=== PATIENT | female | born 1980 | race Caucasian/White ===

== ENCOUNTER 2022-03-14 15:26 | Inpatient (IN) | payer BC, SELFPAY ==
[2022-03-14] VITALS (18 sets, daily range): BP systolic 119–128; BP diastolic 77–94; PULSE 62–75; RESP 16–18; TEMP 36.3–36.6; O2SAT 99–100; BMI 22.8
--- NOTE | 2022-03-14 15:52 | ED_ITS ---
HPI - General Adult General Time Seen by Provider: 15:52 Date Seen: 03/14/22 Chief complaint: Post Op Complication Stated complaint: Low calcium, tingling/cramps Time Seen by Provider: 03/14/22 15:47 Source: patient and RN notes reviewed Mode of arrival: ambulatory Limitations: no limitations History of Present Illness HPI narrative: Patient is a 41-year-old female coming in with numbness tingling and an episode of spasm of her hands today after total thyroidectomy. Today is Wednesday, patient had a complete thyroidectomy at [facility] on Wednesday of this week. 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 She has been taking calcium, has taken 3000 mg of oral calcium already today. She is still has facial and upper extremity numbness tingling feeling. She took a nap earlier today and woke up, was just walking around in her fingers in both hands spasmed straight and she could not move them. She has felt no palpitations or heart irregularity. Related Data Home Medications Medication Instructions Recorded Confirmed calcium 500 mg tablet 2,000 mg PO DAILY 03/14/22 03/14/22 ergocalciferol (vitamin D2) 1,000 2,000 unit PO DAILY 03/14/22 03/14/22 unit capsule levothyroxine 100 mcg tablet 100 mcg PO DAILY 03/14/22 03/14/22 sertraline 50 mg tablet 50 mg PO DAILY 03/14/22 03/14/22 spironolactone 50 mg tablet 50 mg PO DAILY 03/14/22 03/14/22 tramadol 50 mg tablet mg 03/14/22 Allergies Allergy/AdvReac Type Severity Reaction Status Date / Time No Known Drug Allergies Allergy Verified 03/14/22 15:49 Review of Systems Status of ROS: Reports: 10 or more systems reviewed and unremarkable except as noted in History and below [facility] Surgical History (Updated 03/14/22 @ 18:01 by Marylin Vanegas MD) History of thyroidectomy, total S/P ACL surgery Exam Const: Vital Signs, click to edit/add: Vital Signs - 24 hr 03/14/22 15:47 03/14/22 16:35 03/14/22 16:36 Temperature 97.8 F Pulse Rate 75 73 Pulse Rate [Right Pulse Oximeter] 67 Respiratory Rate 18 Blood Pressure 128/86 Blood Pressure [Ri ght Upper Arm] 123/77 Pulse Oximetry 100 100 100 Oxygen Delivery Me thod Room Air 03/14/22 17:00 03/14/22 17:01 03/14/22 17:02 Temperature Pulse Rate 68 69 67 Pulse Rate [Right Pulse Oximeter] Respiratory Rate Blood Pressure 122/90 H Blood Pressure [Ri ght Upper Arm] Pulse Oximetry 100 100 100 Oxygen Delivery Me thod 03/14/22 17:30 03/14/22 17:31 Temperature Pulse Rate 73 66 Pulse Rate [Right Pulse Oximeter] Respiratory Rate Blood Pressure 126/94 H Blood Pressure [Ri ght Upper Arm] Pulse Oximetry 100 100 Oxygen Delivery Me thod Documenting provider has reviewed patient's vital signs: yes Common normals: no apparent distress, average body habitus, oriented x3, no limitations, healthy appearing, alert and well nourished General appearance: cooperative, comfortable, well kempt and anxious (Very mildly ) HENMT: Common normals: normocephalic, head/scalp atraumatic, hearing grossly normal bilaterally, external nose normal, nasal mucous membranes and turbinates normal, moist oral mucous membranes, oropharynx normal, dentition normal and gingiva normal Head and scalp: normocephalic and atraumatic Nose: external nose normal and nasal mucous membranes and turbinates normal Other: Patient has Chvostek sign. Eye: Common normals: PERRL, EOMs intact bilaterally, conjunctivae normal and no scleral icterus Conjunctiva: conjunctiva(e) normal Pupil: PERRL Neck & C-Spine: Common normals: full ROM, no lymphadenopathy, supple, no meningeal signs and no JVD Other: Has Steri-Strips in small incision anteriorly over the neck that is clean dry and intact. There is a little underlying swelling. There is no erythema, no concern for any infection, no drainage. Resp: Common normals: normal respiratory effort, no retractions, no use of accessory muscles and clear to auscultation bilaterally Auscultation: clear to auscultation bilaterally Cardio: Common normals: no JVD, regular rate, regular rhythm, S1 normal heart sound, S2 normal heart sound, no gallops, no clicks, no murmurs and no rub Rate: regular rate Rhythm: regular rhythm Heart sounds: S1 normal and S2 normal GI: Common normals: Normal to inspection, nondistended, normoactive bowel sounds present, soft to palpation, non-tender, no hepatosplenomegaly and no masses Palpation: soft and no hepatosplenomegaly Extremity: Common normals: normal to inspection, full ROM, normal capillary refill, no joint enlargement, no clubbing, cyanosis or edema, no calf tenderness and no pedal edema Neuro: Common normals: oriented x3, CN's II-XII intact bilaterally, moves all extremities, no focal motor deficits, no sensory deficits noted and gait normal Sensorium/orientation: alert Meningeal signs: no meningeal signs Speech: speech normal Other: No noted spasms while I was with her, outside of Chvostek sign, note no s pasticity on exam at this time. DTR's are negative at biceps. Psych: Appearance: well kempt Course Course Hospital Course: We will obtain an EKG, place her on cardiac monitoring, obtain an IV and appropriate labs. With her labs we will make sure her magnesium level is therapeutic. We will check both calcium and ionized calcium. Reevaluation(s) Reevaluation #1: Reviewed with patient her ionized calcium is low, her EKG look stable. Waiting on the rest of her labs. Given her ionized calcium is quite low and she is exhibiting more severe symptoms of hypocalcemia, have ordered 1 g of calcium gluconate, our protocol puts this in over 30 minutes which should be safe. She is on cardiac monitoring. Have spoken with our hospitalist regarding this patient. Time: 16:54 Consultations Consultation #1: Did speak with Dr. Shabazz regarding this case. She did recommend that the patient needs vitamin-D to be able to absorb the calcium. Will ask the patient about this. We did discuss when IV you should be done. She is thinking that this patient may require IV. Depending on where her levels are and symptomatology, patient may need hospitalization. Time: 16:09 Consultation #2: Did speak with the hospitalist. She is aware of the magnesium, has already written IV magnesium orders. Thus we will transfer the patient to the floor and this will be replaced there. Time: 18:01 Vital Signs Vital signs: Initial Vital Signs Temperature 97.8 F 03/14/22 15:47 Temperature Source Temporal Artery Scan 03/14/22 15:47 Pulse Rate 67 03/14/22 15:47 Respiratory Rate 18 03/14/22 15:47 Blood Pressure 123/77 03/14/22 15:47 Blood Pressure Mean 92 03/14/22 15:47 Blood Pressure Position Sitting 03/14/22 15:47 Pulse Oximetry 100 03/14/22 15:47 Oxygen Delivery Method 03/14/22 15:47 Vital Signs Temperature 97.8 F 03/14/22 15:47 Pulse Rate 67 03/14/22 15:47 Respiratory Rate 18 03/14/22 15:47 Blood Pressure 123/77 03/14/22 15:47 Pulse Oximetry 100 03/14/22 15:47 Oxygen Delivery Method 03/14/22 15:47 Temperature 97.8 F 03/14/22 15:47 Pulse Rate 66 03/14/22 17:31 Respiratory Rate 18 03/14/22 15:47 Blood Pressure 126/94 H 03/14/22 17:31 Pulse Oximetry 100 03/14/22 17:31 Oxygen Delivery Method 03/14/22 15:47 Medical Decision Making Lab Data Lab results reviewed: Yes I reviewed the patient's lab results Labs: Lab Results 03/14/22 03/14/22 03/14/22 Range/Units 16:03 16:03 16:03 WBC 6.42 (4.50-11.00) K/uL RBC 4.50 (4.00-5.20) m/uL Hgb 12.6 (12.0-16.0) gm/dL Hct 38.2 (33.0-51.0) % MCV 85 (80-100) fL MCH 28 (26-34) pg MCHC 33 (32-36) gm/dL RDW Coeff of Chelsie 12.0 (11.5-15.5) % Plt Count 236 (140-440) K/uL Neut % (Auto) 65.9 (42.0-72.0) % Lymph % (Auto) 23.7 (20-44) % Berks % (Auto) 7.9 (0.0-11.0) % Eos % (Auto) 1.7 (0.0-7.0) % Baso % (Auto) 0.6 (0.0-3.0) % Neut # (Auto) 4.23 (1.7-7.0) K/uL Lymph # (Auto) 1.52 (0.90-2.90) K/uL Berks # (Auto) 0.50 (0.00-0.90) K/UL Eos # (Auto) 0.11 (0.00-0.50) K/uL Baso # (Auto) 0.04 (0.00-0.30) K/uL Abs Immat Gran (auto) 0.01 (0.00-0.30) K/uL Sodium 140 (135-149) mmol/L Potassium 3.3 L (3.6-5.1) mmol/L Chloride 103 (96-114) mmol/L Carbon Dioxide 27 (20-32) mmol/L BUN 9 (5-24) mg/dL Creatinine 0.7 (0.5-1.5) mg/dL Estimated Creat Clear 91.33 Estimated GFR 111 ml/min Glucose 98 (60-115) mg/dL Calcium 7.7 L (8.4-10.6) mg/dL Ionized Calcium Aishwarya (1.11-1.30) mmol/L Magnesium 1.4 L (1.5-2.6) mg/dL SARS-CoV-2 (PCR) Negative SARS-CoV-2 (Negative) 03/14/22 Range/Units 16:03 WBC (4.50-11.00) K/uL RBC (4.00-5.20) m/uL Hgb (12.0-16.0) gm/dL Hct (33.0-51.0) % MCV (80-100) fL MCH (26-34) pg MCHC (32-36) gm/dL RDW Coeff of Chelsie (11.5-15.5) % Plt Count (140-440) K/uL Neut % (Auto) (42.0-72.0) % Lymph % (Auto) (20-44) % Berks % (Auto) (0.0-11.0) % Eos % (Auto) (0.0-7.0) % Baso % (Auto) (0.0-3.0) % Neut # (Auto) (1.7-7.0) K/uL Lymph # (Auto) (0.90-2.90) K/uL Berks # (Auto) (0.00-0.90) K/UL Eos # (Auto) (0.00-0.50) K/uL Baso # (Auto) (0.00-0.30) K/uL Abs Immat Gran (auto) (0.00-0.30) K/uL Sodium (135-149) mmol/L Potassium (3.6-5.1) mmol/L Chloride (96-114) mmol/L Carbon Dioxide (20-32) mmol/L BUN (5-24) mg/dL Creatinine (0.5-1.5) mg/dL Estimated Creat Clear Estimated GFR ml/min Glucose (60-115) mg/dL Calcium (8.4-10.6) mg/dL Ionized Calcium Aishwarya 0.96 L (1.11-1.30) mmol/L Magnesium (1.5-2.6) mg/dL SARS-CoV-2 (PCR) (Negative) ECG Data Attestation: I personally reviewed and interpreted this ECG as follows: (Sinus rhythm, 69 beats per minute. QT corrected is 432 milliseconds.) Prior ECG tracings: not available for review Critical Care Time Critical Care Time Critical Care Time: No Discharge Plan Discharge Clinical Impression: Status post complete thyroidectomy, Hypomagnesemia, Hypocalcemia Patient Disposition: Admitted As Inpatient Condition: Stable Prescriptions: No Action tramadol 50 mg tablet Hold Instructions: not taking, post surgical med levothyroxine 100 mcg tablet 100 mcg PO DAILY sertraline 50 mg tablet 50 mg PO DAILY spironolactone 50 mg tablet 50 mg PO DAILY calcium 500 mg tablet 2,000 mg PO DAILY ergocalciferol (vitamin D2) 1,000 unit capsule 2,000 unit PO DAILY Follow Up/Referrals: Laura Corona DO [Primary Care Provider] -
--- OUTSIDE RECORDS SUMMARY | 2022-03-14 16:25 | XMS_ITS | Encounter Summary ---
:1980 Author Organization [place] Address [facility] [place] [address] Care Team Providers Name Role Phone Clinic, [facility] Primary Care Provider [phone] Reason for Visit Reason Comments Consult Multinodular goiter Encounter Details Date Type Department Care Team Description 01/29/2022 Office Visit [facility] Alexandru Fair-toxi c multinodular Surgery Clinic Sarai Champion MD goiter [address] [place] [phone] [place] [id number] Social History Tobacco Use Types Packs/Day Years Used Date Never Smoker Smokeless Tobacco: Never Used Alcohol Use Standard Drinks/Week Comments Yes 0 (1 standard drink = 0.6 oz pure alcoho l) 3 per week Alcohol Habits Answer Date Recorded How often do you have a drink containing alcohol? Not asked How many drinks containing alcohol do you have on a typical Not asked day when you are drinking? How often do you have six or more drinks on one occasion? No t asked Comment: 3 per week 01/29/2022 Sex Assigned at Date Recorded Not on file COVID-19 Exposure Response Date Recorded In the last 10 days, have you been in contact with No / Unsu re 01/29/2022 8:26 AM CDT someone who was confirmed or suspected to have Coronavirus/COVID-19? documented as of this encounter Last Filed Vital Signs Vital Sign Reading Time Taken Comments Blood Pressure 120/80 01/29/2022 8:41 AM CDT Pulse 76 01/29/2022 8:41 AM CDT Temperature - - Respiratory Rate - - Oxygen Saturation - - Inhaled Oxygen Concentration - - Weight 59 kg (130 lb) 01/29/2022 8:41 AM CDT Pt report ed Height 162.6 cm (5' 4) 01/29/2022 8:41 AM CDT Pt repor valdo Body Mass Index 22.31 01/29/2022 8:41 AM CDT documented in this encounter Progress Notes Alexandru Fair MD - 01/29/2022 8:30 AM CDT Surgery Consultation, [facility] Alexandru Fair MD, aMdhuri Padilla Date of : 1980 Age: [age] year old PCP: Jinny [facility] [phone] Chief Complaint: Multinodular goiter, follicular neoplasm [facility] History of Present Illness: Madhuri Padilla is a 41 year old female who presented with a multinodular goiter. This has been present for some time. She had undergone serial ultrasounds and most recently, one of her nodules was thought to be larger. Measured approximately 2.5 cm. This was biopsied and t hought to be suspicious for follicular neoplasm. Gene assay was then sent and a degree of suspicion of 50% was suggested. Patient does not have significant sensations of fullness or swallowing difficulties. Does not have a family history of thyroid cancer in an aunt. Patient is euthyroid, takes no thyroid supplementation. She is here to discuss her findings. PMH: Madhuri Padilla has no past medical history on file. PSH: Madhuri Padilla has a past surgical history that includes Arthroscopic Repair Acl (1998). Home medications and allergies reviewed. Social History: Madhuri Padilla reports that she has never smoked. She has never used smokeless tobacco. She reports current alcohol use. She reports that she does not use drugs. Family History: Madhuri Padilla family history includes Anesthesia Reaction in her mother; Cerebrovascular Disease in her maternal grandfather; Coronary Artery Disease in her maternal grandfather and paternal grandfather; Diabetes in her father, maternal grandfather, and paternal grandfather; Hyperlipidemia in her maternal grandfather; Hypertension in her brother, maternal grandfather, mother, and paternal grandfather. ROS: The 10 point Review of Systems is negative other than noted in the HPI. No swallowing difficulties or sensation of fullness. Physical Exam: Blood pressure 120/80, pulse 76, height 1.626 m (5' 4), weight 59 kg (130 lb). 130 lbs 0 oz Thin healthy-appearing young female in no distress. Patient has a pleasant affect and communicates well. Pupils equal round and reactive to light. No cervical lymphadenopathy. Thyroid is mildly enlarged bilaterally. No obviously discrete nodules. Gland moves appropriately with swallowing. Good neck range of motion. Skin creases sufficient for thyroid surgery. Lung ching clear, breathing comfortably. Heart normal sinus rhythm. No murmurs rubs or gallops. Abdomen soft, nontender, nondistended. Skin warm, dry. No obvious rashes or lesions. All new lab and imaging data was reviewed. 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 Assessment/plan: Pleasant healthy 41-year-old female with a suspicious nodule and a multinodular goiter. She does have nodules on both sides of moderate size. Given the findings on her most recent FNA and the fact that she has sizable nodules bilaterally, I have recommended a total thyroidectomy. Thiswould be performed under a general anesthetic. I think this could likely be done as an outpatient. This will allow for establishment of a definitive diagnosis of her suspicious nodule and avoid the risk of further surgery. She does understand that this surgical option will mandate lifelong thyroid hormone replacement. We discussed the risks of thyroid surgery which include bleeding, infection, hypocalcemia, and injury to the recurrent laryngeal nerve. Patient was aware of this risk and willing to proceed. Surgical co-morbities include depression. Gumaro Fair M.D. [facility] [phone] Please route or send letter to: Primary Care Provider (PCP) and Referring Provider documented in this encounter Plan of Treatment Upcoming Encounters Date Type Specialty Care Team Description 03/26/2022 Office Visit General Surgery Alexandru Fair MD [address] [place] [address] (Wo rk) documented as of this encounter Visit Diagnoses Diagnosis Non-toxic multinodular goiter Nontoxic multinodular goiter documented in this encounter Care Teams Byproducts Operator Relationship Specialty Start Date End Date Clinic, [facility] PCP - General 01/29/22 03/12/[address] [place] [address] documented as of this encounter
--- OUTSIDE RECORDS SUMMARY | 2022-03-14 16:25 | XMS_ITS | Encounter Summary ---
:1980 Author Organization [place] Address [address] [place] [address] Care Team Providers Name Role Phone Clinic, [facility] Primary Care Provider [phone] Alexandru Fair MD Unavailable Laura Corona MD Primary Care Provider Encounter Details Date Type Department Care Team Description 03/06/2022 Orders Only [facility] Bill RYAN laboratory testing for [address] [place] [address] COVID-19 virus [place], [place] [phone] Social History Tobacco Use Types Packs/Day Years [...] 10 days, have you been in contact Unable to asse ss 03/09/2022 9:02 AM CDT with someone who was confirmed or suspected to have Coronavirus/COVID-19? documented as of this encounter Plan of Treatment Upcoming Encounters Date Type Specialty Care Team Description 03/26/2022 Office Visit General Surgery Alexandru Fair MD [address] [place] [address] (Wo rk) documented as of this encounter Results Asymptomatic COVID-19 Virus (Coronavirus) by PCR Nose (03/09/2022 9:05 AM CDT) Analysis Performed At Patho logist Time Signature SARS CoV2 PCR Negative Negative 03/09/2022 [facility] 9:53 PM CDT LABORATORY Comment: NEGATIVE: SARS-CoV-2 (COVID-19) RNA not detected, presumed negative. Specimen Anatomical Collection Method Collection Time Receive d Time (Source) Location / / Volume Laterality Swab NASAL STRUCTURE / Non-blood 03/09/2022 9:05 AM 08/2021 Unknown Collection / CDT 12:28 PM CDT Unknown Narrative [facility] - 03/09/2022 9:53 PM C DT Testing was performed using the Aptima SARS-CoV-2 Assay on the [employer] Instrument System. Additional in formation about this Emergency Use Authorization (EUA) assay can be found via the Lab Guide. This test should be ordered for t he detection of SARS-CoV-2 in individuals who meet SARS-CoV-2 clinical and/or epidemiological criteria. Test performance is unknown in asymptomatic patients. This test is for in vitro diagnostic use unde r the FDA EUA for laboratories certified under CLIA to per form high complexity testing. This test has not been FDA cleared or ap proved. A negative result does not rule out the presence of PCR in hibitors in the specimen or target RNA in concentration below the li ruchi of detection for the assay. The possibility of a false negati ve should be considered if the patient's recent exposure or clinica l presentation suggests COVID-19. This test was validated by the [facility]. This lab oratory is certified under the Clinical Laboratory Improvement Amen dments of 1987 (CLIA-88) as qualified to perform high complexity lab oratory testing. Emerson Benito MD LAB - MICRO GENERAL ORDERABL ES Performing Organization Address City/State/ZIP Code Phon e Number [facility] [place] [address] Diag. Lab [address] [facility], [address] documented in this encounter Visit Diagnoses Diagnosis Encounter for laboratory testing for COV ID-19 virus documented in this encounter Care Teams Quality Assurance Tester Relationship Specialty Start Date End Date Jinny, Ady PCP - General 01/29/22 03/12/22 [place] [address] [place] [address] Laura Corona MD PCP - General Family Medicine 03/13/22 [address] [place] [address] Alexandru Fair, Assigned Surgical Provider [address] [place] [id number] documented as of this encounter
--- OUTSIDE RECORDS SUMMARY | 2022-03-14 16:25 | XMS_ITS | Encounter Summary ---
:1980 Author Organization [place] Address [facility] [place] [address] Care Team Providers Name Role Phone Alexandru Fair MD Unavailable Laura Corona MD Primary Care Provider Encounter Details Date Type Department Care Team Description 03/13/2022 Telephone [facility] Surgery Nikita Gibbs, Clinic Sarai RYAN [id number] [place] [id number] [place] [address] [phone] (Wo rk) Social History Tobacco Use Types Packs/Day Years [...] in contact with No / Unsu re 03/13/2022 2:16 PM CDT someone who was confirmed or suspected to have Coronavirus/COVID-19? documented as of this encounter Miscellaneous Notes Telephone Encounter - Nikita Gibbs MD - 03/13/2022 9:11 PM CDT Received message from [employer] service to call patient back regarding lab results She reports that she underwent total thyroidectomy earlier this week. Earlier today she developed some numbness and tingling in her hands and had a calcium level drawn. She received a message via [employer]spotter I told her her results were in and the calcium was 3.9 on her check of her chart. She has been taking 1000 mg calcium twice daily. She apparently had been instructed by the office prior to receiving her lab results to increase this to 3 times daily. She states that she continues to have some tingling in her hands. I recommended that she increase the dose to 4 times daily and call the office to haveher calcium rechecked on Wednesday. Should symptoms persist or worsen she needs to come immediately to the emergency department. She expressed understanding of the instructions. documented in this encounter Plan of Treatment Upcoming Encounters Date Type Specialty Care Team Description 03/26/2022 Office Visit General Surgery Alexandru Fair MD [address] [place] [address] (Wo rk) documented as of this encounter Visit Diagnoses Not on filedocumented in this encounter Care Teams Breastfeeding Peer Counselor Relationship Specialty Start Date End Date Laura Corona MD PCP - General Family Medicine 03/13/22 [address] [place] [address] Alexandru Fair, Assigned Surgical Provider [address] [place] [address] documented as of this encounter
--- OUTSIDE RECORDS SUMMARY | 2022-03-14 16:25 | XMS_ITS | Encounter Summary ---
:1980 Author Organization [place] Address [address] [place] [address] Care Team Providers Name Role Phone Alexandru Fair MD Unavailable Laura Corona MD Primary Care Provider Encounter Details Date Type Department Care Team Description 03/13/2022 Lab [facility] [place] Hypocalcemia; Laboratory S/P thyroidectomy [id number] [place] [address] Social History Tobacco Use Types Packs/Day Years [...] Visit General Surgery Alexandru Fair MD [address] [place] [address] (Wo rk) documented as of this encounter Procedures Procedure Name Priority Date/Time Associated Diagnosis Comme nts IONIZED CALCIUM Today 03/13/2022 2:19 PM Hypocalcemia Results for this CDT S/P thyroidectomy procedure are in the results section. documented in this encounter Results (ABNORMAL) Ionized Calcium (03/13/2022 2:19 PM CDT) P athologist Signature Calcium 3.9 (L) 4.4 - 5.2 03/13/2022 [facility] Ionized mg/dL 7:34 PM CDT Specimen Anatomical Collection Method / Collection Time Recei harshil Time (Source) Location / Volume Laterality Blood STRUCTURE OF RIGHT Venipuncture / 03/13/2022 2:19 10/0 12/2021 2:19 UPPER LIMB / Unknown PM CDT PM CDT Unknown Priscilla Encinas PA-C LAB - BLOOD ORDERABLES Performing Organization Address City/State/ZIP Code Phon [place] [address] Lab [address] [facility], Room 3-580 documented in this encounter Visit Diagnoses Diagnosis Hypocalcemia S/P thyroidectomy Other postprocedural status documented in this encounter Care Teams Microsoft Bi Architect Relationship Specialty Start Date End Date Laura Corona MD PCP - General Family Medicine 03/13/22 [address] [place] [address] Alexandru Fair, Assigned Surgical Provider [address] [place] [address] documented as of this encounter
--- OUTSIDE RECORDS SUMMARY | 2022-03-14 16:25 | XMS_ITS | Encounter Summary ---
:1980 Author Organization [place] Address [address] [facility] [place] [address] Care Team Providers Name Role Phone Clinic, [facility] Primary Care Provider [phone] Alexandru Fair MD Unavailable Reason for Visit Auth/Cert Specialty Diagnoses / Procedures Referred By Contact Refer red To Contact Surgery Diagnoses Non-toxic multinodular goiter Non-toxic multinodular goiter [E04.2] Sh Periop Servic es Procedures HC THYROIDECTOMY HC THYROIDECTOMY,MALIG,LTD NECK SURG total thyroidectomy [address] [place] [address] Phone: Referral ID Status Reason Start Date Expiration Date Visits Requ ested Visits Authorized [id number] 1 1 Encounter Details Date Type Department Care Team Description 03/11/[address] [facility] Alexandru Chowdhury lety post- operative pain (Primary Dx); Syeda Champion MD Non-toxic multinodular goiter PreOP/Phase II [address] [place] [address] [place] [phone] (Work) [phone] Social History Tobacco Use Types Packs/Day Years [...] in contact with No / Unsu re 03/11/2022 8:13 AM CDT someone who was confirmed or suspected to have Coronavirus/COVID-19? documented as of this encounter Last Filed Vital Signs Vital Sign Reading Time Taken Comments Blood Pressure 111/63 03/11/2022 3:30 PM CDT Pulse 75 03/11/2022 2:00 PM CDT Temperature 36.7 ??C (98 ??F) 03/11/2022 2:00 PM CDT Respiratory Rate 20 03/11/2022 3:30 PM CDT Oxygen Saturation 100% 03/11/2022 3:30 PM CDT Inhaled Oxygen Concentration - - Weight 60.3 kg (132 lb 14.4 oz) 03/11/2022 8:29 AM CDT Height 162.6 cm (5' 4) 03/11/2022 8:29 AM CDT Body Mass Index 22.81 03/11/2022 8:29 AM CDT documented in this encounter Discharge Instructions Discharge InstructionsKellie Walton RN - 03/11/2022 1:02 PM CDT [facility] Discharge Instructions: Post-Operative Thyroid Surgery ACTIVITY Take frequent, short walks and increase your activity gradually. Avoid strenuous physical activity or heavy lifting greater than 15-20 lbs. for 1-2 weeks. You may climb stairs. You may drive without restrictions when you are not using any prescription pain medication and feel comfortable in a car. You may return to work/school when you are comfortable without any prescription pain medication. WOUND CARE You may remove your bandage and shower 48 hours after the surgery. Pat your incision dry and leave it open to air. Re-apply dressing (Band-Aids or gauze/tape) as needed for comfort or drainage. You may have steri-strips (looks like white tape) on your incision. You may peel off the steri-strips 2 weeks after your surgery if they have not peeled off on their own. Do not soak your incision in a tub or pool for 2 weeks. Do not apply any lotions, creams, or ointments to your incision. A ridge under your incision is normal and will gradually resolve. DIET Start with liquids, then gradually resume your regular diet as tolerated. Drink plenty of fluids to stay hydrated. PAIN Expect some tenderness and discomfort at the incision site(s). Use the prescribed pain medication atyour discretion. Expect gradual resolution of your pain over several days. You may take ibuprofen with food (unless you have been told not to) or acetaminophen/Tylenol insteadof or in addition to your prescribed pain medication. However, if you are taking Maynard or Percocet, do not take any additional acetaminophen/Tylenol. Do not drink alcohol or drive while you are taking pain medications. You may apply ice to your incisions in 20 minute intervals as needed for the next 48 hours. After that time, consider switching to heat if you prefer. Watch for symptoms of numbness or tingling around the mouth or in the fingers or toes. This may be asign of a low calcium level. Please contact the office so we can evaluate your symptoms. You may need to have your blood calcium level checked by doing a simple blood test. EXPECTATIONS Pain medications can cause constipation. Limit use when possible. Take an over the counter or prescribed stool softener/stimulant, such as Colace or Senna, 1-2 times a day with plenty of water. You maytake a mild over the counter laxative, such as Miralax or a suppository, as needed. You may discontinue these medications once you are having regular bowel movements and/or are no longer taking your narcotic pain medication. RETURN APPOINTMENT Follow up with your surgeon in 2 weeks. Please call our office at [phone] to schedule your appointment. We are located at [address] [place] [address]. CALL OUR OFFICE AT [phone] IF YOU HAVE: Chills or fever above 101??F. Increased redness, warmth, or drainage at your incisions. Significant bleeding. Pain not relieved by your pain medication or rest. Increasing pain after the first 48 hours. Any other concerns or questions. Revised May 2021 Same Day Surgery Discharge Instructions for Sedation and General Anesthesia It's not unusual to feel dizzy, light-headed or faint for up to 24 hours after surgery or while taking pain medication. If you have these symptoms: sit for a few minutes before standing and have someone assist you when you get up to walk or use the bathroom. You should rest and relax for the next 24 hours. We recommend you make arrangements to have an adultstay with you for at least 24 hours after your discharge. Avoid hazardous and strenuous activity. DO NOT DRIVE any vehicle or operate mechanical equipment for 24 hours following the end of your surgery. Even though you may feel normal, your reactions may be affected by the medication you have received. Do not drink alcoholic beverages for 24 hours following surgery. Slowly progress to your regular diet as you feel able. It's not unusual to feel nauseated and/or vomit after receiving anesthesia. If you develop these symptoms, drink clear liquids (apple juice, owen barak, broth, 7-up, etc. ) until you feel better. If your nausea and vomiting persists for 24 hours, please notify your surgeon. All narcotic pain medications, along with inactivity and anesthesia, can cause constipation. Drinking plenty of liquids and increasing fiber intake will help. For any questions of a medical nature, call your surgeon. Do not make important decisions for 24 hours. If you had general anesthesia, you may have a sore throat for a couple of days related to the breathing tube used during surgery. You may use Cepacol lozenges to help with this discomfort. If it worsens or if you develop a fever, contact your surgeon. If you feel your pain is not well managed with the pain medications prescribed by your surgeon, please contact your surgeon's office to let them know so they can address your concerns. documented in this encounter Medications at Time of Discharge Medication Sig Dispensed Refills Start Date End Date calcium carbonate Take 2 tablets 120 tablet 1 03/11/2022 (OS-ADELE) 500 MG (1,000 mg) by mouth tabletIndications: 2 times daily Non-toxic multinodular goiter cetirizine (ZYRTEC) 10 MG Take 10 mg by mouth 0 tablet daily ergocalciferol Take 50,000 Units 0 (ERGOCALCIFEROL) 1.25 MG by mouth Wednesday and (62385 UT) capsule fluticasone (FLONASE) 50 [place] 1 spray into 0 MCG/ACT nasal spray both nostrils every morning levothyroxine Take 1 tablet (100 60 tablet 0 03/11/2022 (SYNTHROID/LEVOTHROID) mcg) by mouth daily 100 MCG tabletIndications: Non-toxic multinodular goiter senna-docusate Take 1-2 tablets by 15 tablet 0 03/11/2022 (SENOKOT-S/PERICOLACE) mouth 2 times daily 8.6-50 MG tabletIndications: Acute post-operative pain sertraline (ZOLOFT) 50 MG Take 50 mg by mouth 0 tablet daily spironolactone Take 50 mg by mouth 0 (ALDACTONE) 50 MG tablet daily traMADol (ULTRAM) 50 MG Take 1 tablet (50 8 tablet 0 03/1103/14/2022 tabletIndications: Acute mg) by mouth every post-operative pain 6 hours as needed for severe pain vitamin D3 Take 1 tablet by 0 (CHOLECALCIFEROL) 50 mcg mouth daily (2000 units) tablet documented as of this encounter Progress Notes Aury Buck - 03/10/2022 11:25 AM CDT BARTENDER MANAGER medications updated by Medication Scribe prior to surgery via phone call with patient??(last doses completed by Nurse) Medication history sources: Patient, Surescripts, H&P and Patient's home med list In the past week, patient estimated taking medication this percent of the time: Greater than 90% Adherence assessment: N/A Not Observed Significant changes made to the medication list: None Additional medication history information: None Medication reconciliation completed by provider prior to medication history? No Time spent in this activity: 25 MINUTES The information provided in this note is only as accurate as the sources available at the time of update(s) Prior to Admission medications Medication Sig Last Dose Taking? Auth Provider Furniture Manager End Date fluticasone (FLONASE) 50 MCG/ACT nasal spray [place] 1 spray into both nostrils every morning at AM Yes Reported, Patient sertraline (ZOLOFT) 50 MG tablet Take 50 mg by mouth daily at AM Yes Reported, Patient Yes spironolactone (ALDACTONE) 50 MG tablet Take 50 mg by mouth daily at AM Yes Reported, Patient Yes vitamin D3 (CHOLECALCIFEROL) 50 mcg (2000 units) tablet Take 1 tablet by mouth daily at AM Yes Reported, Patient documented in this encounter H&P Notes Jose Guadalupe Barrientos MD - 03/11/2022 9:13 AM CDT I have reviewed the surgical (or preoperative) H&P that is linked to this encounter, and examined the patient. There are no significant changes Clinical Conditions Present on Arrival: Clinically Significant Risk Factors Present on Admission Source Note - Scan, Provider - 03/09/2022 12:20 PM CDT documented in this encounter Nursing Notes Herlinda Davis RN - 03/11/2022 3:10 PM CDT Pt States 'I feel a lot better now. BP now 106/52. Herlinda Davis RN - 03/11/2022 2:34 PM CDT Pt pale and diaphoretic upon arrival to Phase ll. Iv fluids increased. Kellie Walton RN - 03/11/2022 2:22 PM CDT Patient became diaphoretic upon getting up in recliner chair. Denies nausea. Pain tolerable. Dr. Fair at bedside to see patient. Okay to discharge to home. Kellie Walton RN - 03/11/2022 2:17 PM CDT Pt dressed, up in recliner and transported to Phase 2. Kellie Walton RN - 03/11/2022 1:43 PM CDT Patient tolerating sips of water. documented in this encounter Miscellaneous Notes Brief Op Note - Jael Jacinto PA-C - 03/11/2022 1:10 PM CDT [facility] General Surgery Brief Operative Note Pre-operative diagnosis: Non-toxic multinodular goiter [E04.2] Post-operative diagnosis Same Procedure: Procedure(s): total thyroidectomy Surgeon(s), Auto Suspension And Steering Mechanic(s): Surgeon(s) and Role: * Alexandru Fair MD - Primary * Jael Jacinto PA-C - Assisting Estimated blood loss: 75 mL Drains: None Specimens: ID Type Source Tests Collected by Time Destination 1 : TOTAL THYROID Tissue Thyroid SURGICAL PATHOLOGY EXAM Alexandru Fair MD 03/11/2022 12:00 PM Findings: RLN identified and intact Complications: Condition: None Stable Comments: Jael Jacinto PA-C [facility] See dictated operative report for full details Op Note - Alexandru Fair MD - 03/11/2022 10:23 AM CDT General Surgery Operative Note PREOPERATIVE DIAGNOSIS: Non-toxic multinodular goiter [E04.2] POSTOPERATIVE DIAGNOSIS: Same PROCEDURE: Total thyroidectomy with recurrent laryngeal nerve monitor. ANESTHESIA: General. PREOPERATIVE MEDICATIONS: Ancef IV. SURGEON: Alexandru Fair MD, MD DIVINE HEALER: Jael Jacinto PA-C. diploma dental assistant was necessary due to challenging exposure and the need for improved visualization and help maintaining hemostasis. ESTIMATED BLOOD LOSS: 75 cc's INDICATIONS: Madhuri Padilla is a 41 year old female who has had multiple thyroid nodules. She has also had symptoms including the sensation of throat fullness. One of the nodules was biopsied and this was suspicious for follicular neoplasm with a risk of cancer of 50%. She now presents for total thyr oidectomy. DESCRIPTION OF PROCEDURE: The patient was placed supine, head and neck in extension and a bump between the scapulae. Transverse cervical neck creases were marked in the preinduction area and the one most suitable was utilized for exposure. Superior and inferior skin flaps raised. Midline fascia openedand reflected to the right. The upper pole was taken down by double ligation and division. Middle thyroidal vein and inferior pole veins were ligated and the gland reflected medially. The superior parathyroid and recurrent laryngeal nerve were readily seen and preserved. Nerve conduction was confirmedwith nerve monitor. The posterior dissection was meticulously done to ligate and divide the inferiorthyroidal artery and the ligament of Ruelas. The inferior parathyroid was seen and preserved. We thenproceeded with the left thyroid lobectomy. The upper pole was taken down by double ligation and division. Middle thyroidal vein and inferior pole veins were ligated and the gland reflected medially. The superior parathyroid and recurrent laryngeal nerve were readily seen and preserved. The posterior dissection was meticulously done to ligate and divide the inferior thyroidal artery and the ligament of Ruelas. The inferior parathyroid was seen and preserved. Once the remaining attachments were divided, the gland was oriented for pathology and submitted for permanent sections. The site was inspected for hemostasis, irrigated and closed using running 3-0 Vicryl for the midline fascia, interrupted for platysma and 4-0 subcuticular Monocryl for skin. The patient transferred to recovery in good condition. INTRAOPERATIVE FINDINGS: 1. Nodular thyroid gland 2. Both recurrent laryngeal nerves seen and preserved. Nerve conduction confirmed with nerve monitor. 3. Right superior parathyroid, right inferior parathyroid, left superior, and left inferior parathyroid seen and preserved. Specimens: ID Type Source Tests Collected by Time Destination 1 : TOTAL THYROID Tissue Thyroid SURGICAL PATHOLOGY EXAM Alexandru Fair MD 03/11/2022 12:00 PM Alexandru Fair MD, MD documented in this encounter Plan of Treatment Upcoming Encounters Date Type Specialty Care Team Description 03/26/2022 Office Visit General Surgery Alexandru Fair MD [address] [place] [address] (Wo rk) documented as of this encounter Procedures Procedure Name Priority Date/Time Associated Diagnosis Comme nts SURGICAL PATHOLOGY Routine 03/11/2022 12:00 Resul ts for this EXAM PM CDT procedure are i n the results section. THYROIDECTOMY, 03/11/2022 9:34 AM Non-toxic TOTAL CDT multinodular goiter Special Needs Plan is to go home after pro cedure HCG QUALITATIVE URINE STAT 03/11/2022 8:26 AM CDT LAB RESULT - HIM SCAN 02/23/2022 12:00 AM CDT documented in this encounter Results Surgical Pathology Exam (03/11/2022 12:00 PM CDT) Component Value Ref Test Analysis Performed At [facility] Range Method Time Signature Case Report Surgical Pathology Report ? Case: [id number] ? 03/13/2022 Authorizing Provider: ??Alexandru Flanagan MD ??Collected: ? 03/11/2022 12:00 PM ? 9:53 AM LABORATOR Y Ordering Location: ? [facility] ?Received: ?03/11/2022 12:56 PM ? CDT ? [facility] OR ? Pathologist: ? Mark Bower MD PhD ? Specimen: ?Thyroid, TOTA L THYROID ? Final A(1). 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 9:53 AM Clinical Procedure: 03/13/2022 Information total thyroidectomy - Bilateral 9:53 A M LABORATORY Pre-op Diagnosis: Non-toxic multinodular goiter [E04.2] CDT Post-op Diagnosis: E04.2 - Non-toxic multinodular goiter [IC D-10-CM] Gross A(1). Thyroid, TOTAL THYROID: 03/13/2022 Description The specimen is received in formalin, labeled with the patient's name, medical record number and other identifying information designated total thyroid, suture mora right superior pole. It consists o 9:53 AM LABORATORY f a 19.3 g, total thyroidect dyana specimen with a 5.5 x 2.7 x 1.2 cm left thyroid lobe, 2.0 x 1.3 x 0.5 cm Isthmus, 5.5 x 2.7 x 2.0 cm right thyroid lobe with a suture marking right superior pole. The specimen is inked as follows: CDT Blue-anterior aspect of total thyroid specimen Black-posterior aspect of total thyroid specimen The specimen is sectioned to reveal 2, 0.4 x 0.3 x 0.2 cm and 1.5 x 1.0 x 0.6 cm pale-chin nodules located in the inferior pole of the left thyroid lobe. The smaller nodule is 0.1 cm from the anterior ex ternal surface, and is 0.5 c m in the posterior external surface. The larger nodule abuts the anterior external surface, is 0.2 cm from the posterior external surface. A single, 2.3 x 1.3 x 1.3 cm pale-t an,nodule is identified with in the inferior pole of the right thyroid lobe which abuts the anterior and posterior external surfaces. No nodularities are identified within the isthmus. The remainder of t he specimen displays a red-b rown, soft cut surface. The specimen is representatively sampled as follows: A1-A5-left thyroid lobe A1-superior A2-mid U1-W0-upnvmeoo to include two chin-white nodules (submitted entirely) A6-isthmus A7-A 12-right thyroid lobe A7-superior A8-mid A9-A 12-inferior to include chin-white nodule (submitted ent irely) (Kiarra Jerroddavid) Microscopic Microscopic 03/13/2022 Description examination was 9:53 AM LABORATORY performed. CDT Performing The technical 03/13/2022 Labs component of this 9:53 AM LABORATORY testing was CDT completed at [facility] Case Images 03/13/2022 9:53 AM LABORATORY CDT Specimen Anatomical Collection Method Collection Time Receive d Time (Source) Location / / Volume Laterality Tissue THYROID STRUCTURE 03/11/2022 12:00 2021 / Unknown PM CDT 12:56 PM CDT Comment: SUTURE RIGHT SUPERIOR POLE Alexandru KIRKPATRICK - DICK URIAS Performing Organization Address City/State/ZIP Code Phon e Number [place] [phone] Care Lab [address] Lab (1st floor, no room number) [place] [address], [facility] Acute Care Lab [address] 1st floor, Room [address] HCG qualitative urine - Pre-Op (03/11/2022 8:26 AM CDT) [facility] Method Time Signature hCG Urine Negative Negative PEDRO 03/11/2022 LABORATORY Qualitative 8:34 AM CDT Comment: This test is for screening purp oses. Results should be interpreted along with the clinical picture. Confirmation testing is available if warranted by ordering [id number], HCG Quantitative . Specimen Anatomical Collection Method Collection Time Receive d Time (Source) Location / / Volume Laterality Urine URINE SPECIMEN Non-blood 03/11/2022 8:26 AM 022 8:27 OBTAINED BY CLEAN Collection / CDT AM CDT CATCH PROCEDURE / Unknown Unknown Jose Guadalupe Barrientos MD LAB - URINE ORDERABLES Performing Organization Address City/State/ZIP Code Phon e Number SH LABORATORY [facility] [place] [phone] Care Lab [address] 1st floor, [address] LAB RESULT - HIM SCAN (02/23/2022 12:00 AM CDT) Specimen (Source) Anatomical Location Collection Method / Collectio n Time Received Time / Laterality Volume 02/23/2022 Narrative This result has an attachment that is no t available. Provider Outside NON-BEAKER LAB TESTING documented in this encounter Visit Diagnoses Diagnosis Acute post-operative pain - Primary Other acute postoperative pain Non-toxic multinodular goiter Nontoxic multinodular goiter documented in this encounter Administered Medications Inactive Administered Medications - up to 3 most recent administrations Medication Order MAR Action Action Date Dose Rate Site fentaNYL (PF) (SUBLIMAZE) injection 25 m cg 25 mcg, Intravenous, EVERY 15 MIN PRN, other, acute pa in while in Phase II, Starting on Wed03/11/22 at 1430, Up to a total of 100 mcg. Use as a short acting IV agent for acute pain control. Patient must be monitore d a minimum of 30 minutes before leaving the facility and meet all Phase II disc harge criteria., Phase ll fentaNYL (PF) (SUBLIMAZE) injection 50 m cg Given 03/11/2022 1:30 PM CDT 50 mcg 50 mcg, Intravenous, EVERY 5 MIN PRN, moderate to severe pain, Starting on Wed03/11/22 at 1234, Administer fentaNYL (SUBLIMAZE) for acute pain control. Move to HYDROmorphone (DILAUDID): - IF patient has received up to 4 doses (200 mcg) of fentaNYL (SUBLIMAZE), OR - IF severe pain (pain score greater than or equal to seven (7) or inability of patient to participate in post op recovery due to pain) AFTER 2 doses fentaNYL (SUBLIMAZE). WAIT 5 minutes AFTER last fentaNYL (SUBLIMAZE) dose before administering HYDROmorphone (DILAUDID). Postop Anesthesia Phase I only. Notify Provider to assess for uncontrolled pain or analgesic side effects. Do NOT revert back to fentanyl (SUBLIMAZE) after moving to HYDROmorphone (DILAUDID)., PACU scopolamine (TRANSDERM) Patch/Med Applied 03/11/2022 9:06 AM 1 patch Behind Left Ear 72 hr patch 1 patch CDT 1 patch, Transdermal, EVERY 72 HOURS, Administer over 72 Hours, First dose on Wed03/11/22 at 0930, Apply patch to skin, behind ear. Remove every 72 hours. DO NOT CUT PATCH. If dose is for a half or quarter patch, RN to remove only half or quarter of the backing. Each 1.5 mg patch delivers 1 mg of scopolamine. Reminder: Remove previous patch before applying new patch., Pre-procedure traMADol (ULTRAM) tablet 50 mg Given 03/11/2022 3:28 PM CDT 50 mg 50 mg, Oral, ONCE PRN, moderate pain, Starting on Wed03/11/22 at 1521, For 1 dose, PACU/Phase II documented in this encounter Active and Recently Administered Medications Times are shown in CDT. Scheduled Medication Order 03/09/2022 03/10/2022 03/11/2022 ceFAZolin Sodium (ANCEF) injection 2 g (COMPLETED) 1001 (Given - Provider: Radha Chan) Routine, 2 g, Intravenous, PRE-OP/PRE-NH OCEDURE, Starting on Wed03/11/22 at 0830, For 1 dose, Give first dose within 1 hour PRIOR to incision. If patient weight is greater than or equal to 120 kg increa se dose to 3 g., Indications: Perioperative Pharmacoprophyla xis, Pre-procedure scopolamine (TRANSDERM) 72 hr patch 1 patch (CANCELED) 0906 (Patch/Med Applied - Provider: Fernanda Nino RN)1253 (Due: Patch/Med Removed - Provider: Juan M Perez RN - Comment: Time automatically adjusted from order being discontinued) 1 patch, Transdermal, EVERY 72 HOURS, Ad stick inserter over 72 Hours, First dose on Wed03/11/22 at 0930, Apply patch to skin, behind ear. Remove every 72 hours. DO NOT CUT PATCH. If dose is for a half or quar ter patch, RN to remove only half or meme rter of the backing. Each 1.5 mg patch delivers 1 mg of scopolamine. Reminder: Remove previous patch before applying new patch., Pre-procedure PRN Medication Order 03/09/2022 03/10/2022 03/11/2022 bupivacaine 0.25 % - EPINEPHrine 1:200,000 injection (CANCELED) 1237 (Given - Provider: Alexandru Fair MD) PRN, Starting on Wed03/11/22 at 1237, Intra-procedure fentaNYL (PF) (SUBLIMAZE) injection 25 mcg 25 mcg, Intravenous, EVERY 15 MIN PRN, o ther, acute pain while in Phase II, Starting on Wed03/11/22 at 1430, Up to a total of 100 mcg. Use as a short acting IV agent for acute pain control. Patient must be monitored a minimum of 30 minutes be fore leaving the facility and meet all Phase II discharge criteria., Phase ll fentaNYL (PF) (SUBLIMAZE) injection 50 mcg (CANCELED) 1330 (Given - Provider: Kellie Walton RN) 50 mcg, Intravenous, EVERY 5 MIN PRN, mo derate to severe pain, Starting on Wed03/11/22 at 1234, Administer fentaNYL (SUBLIMAZE) for acute pain control. Move to HYDROmorphone (DILAUDID): - IF patient has received up to 4 doses (200 mcg) of fen taNYL (SUBLIMAZE), OR - IF severe pain (pain score greater than or equal to seven (7) or inability of patient to participate in post op recovery due to pain) AFTE R 2 doses fentaNYL (SUBLIMAZE). WAIT 5 m inutes AFTER last fentaNYL (SUBLIMAZE) dose before administering HYDROmorphone (DILAUDID). Postop Anesthesia Phase I only. Notify Provider to assess for uncontrol led pain or analgesic side effects. Do N OT revert back to fentanyl (SUBLIMAZE) after moving to HYDROmorphone (DILAUDID)., PACU sodium chloride 0.9% (bottle) irrigation (CANCELED) 1022 (Given - Provider: Alexandru Fair MD) PRN, Starting on Wed03/11/22 at 1022, Intra-procedure traMADol (ULTRAM) tablet 50 mg (COMPLETED) 1528 (Given - Provider: Herlinda [place], RN) 50 mg, Oral, ONCE PRN, moderate pain, St arting on 03/11/22 at 1521, For 1 dose, PACU/Phase II documented in this encounter Care Teams Case Managers Relationship Specialty Start Date End Date Clinic, [facility] PCP - General 01/29/22 03/12/22 [address] [place] [address] Alexandru Fair MD Assigned Surgical Provider 02/07/22 [address] [place] [address] documented as of this encounter
--- OUTSIDE RECORDS SUMMARY | 2022-03-14 16:25 | XMS_ITS | Encounter Summary ---
:1980 Author Organization [place] Address [address] [place] [address] Care Team Providers Name Role Phone [facility], [facility] Primary Care Provider [phone] Reason for Visit Reason Onset Date Comments Schedule Surgery 01/30/2022 Total thyroidectomy Encounter Details Date Type Department Care Team Description [facility] Eyad Champion MD thyroidectomy) [address] [place] [phone] [place] [id number] (Wo rk) Social History Tobacco Use Types [...] this encounter Miscellaneous Notes Telephone Encounter - Claritza Galloway - 01/30/2022 8:25 AM CDT Type of surgery: total thyroidectomy Location of surgery: [facility] Date and time of surgery: 03/11/22 10:40am Surgeon: Dr Fair Pre-Op Appt Date: pt to schedule Post-Op Appt Date: pt to schedule Packet sent out: Yes Pre-cert/Authorization completed: Not Applicable Date: 01/29/22 documented in this encounter Plan of Treatment Upcoming Encounters Date Type Specialty Care Team Description 03/26/2022 Office Visit General Surgery Alexandru Fair MD [address] [place] [address] (Wo rk) documented as of this encounter Visit Diagnoses Not on filedocumented in this encounter Care Teams Compugraph Operator Relationship Specialty Start Date End Date [facility] PCP - General 01/29/22 03/12/[address] [place] [address] documented as of this encounter
--- OUTSIDE RECORDS SUMMARY | 2022-03-14 16:25 | XMS_ITS | Encounter Summary ---
:1980 Author Organization [place] Address [address] [place] [address] Care Team Providers Name Role Phone [facility], [facility] Primary Care Provider [phone] Alexandru Fair MD Unavailable Reason for Visit Reason Onset Date Comments Covid 19 Testing 03/09/2022 Encounter Details Date Type Department Care Team Description 03/09/2022 Lab [facility] Encounter for laboratory [place] testing for COVID-19 virus [address] [phone] Social History Tobacco Use Types Packs/Day Years [...] have Coronavirus/COVID-19? documented as of this encounter Progress Notes Katie Rosa RN - 03/09/2022 9:05 AM CDT COVID-19 PCR test completed. Patient handout For Patients Who Have Been Tested for Covid-19 (Coronavirus) was given to the patient, which includes test result notification process. COVID-19 PCR test completed. Patient handout For Patients Who Have Been Tested for Covid-19 (Coronavirus) was given to the patient, which includes test result notification process. documented in this encounter Plan of Treatment Upcoming Encounters Date Type Specialty Care Team Description 03/26/2022 Office Visit General Surgery Alexandru Fair MD [address] [place] [address] (Wo rk) documented as of this encounter Procedures Procedure Name Priority Date/Time Associated Diagnosis Comme nts COVID-19 VIRUS Routine 03/09/2022 9:05 AM Encounter for Result s for this (CORONAVIRUS) BY CDT laboratory testing proce gonzález are in PCR for COVID-19 virus the resul ts section. documented in this encounter Results Asymptomatic COVID-19 Virus (Coronavirus) [...] using the Aptima SARS-CoV-2 Assay on the [employer] Instrument System. Additional in formation about this [...] COVID-19. This test was validated by the [facility] Infectious Diseases Diagnostic [facility]. This lab oratory is certified under the Clinical Laboratory Improvement Amen dments of 1987 (CLIA-88) as qualified to perform high complexity lab oratory testing. Emerson Benito MD LAB - MICRO GENERAL ORDERABL ES Performing Organization Address City/State/ZIP Code Phon e Number [facility] [place] [address] Diag. Lab [address] [facility], Room D297 documented in this encounter Visit Diagnoses Diagnosis Encounter for laboratory testing for COV ID-19 virus documented in this encounter Care Teams Small Boat Engineer Relationship Specialty Start Date End Date [facility], [facility] PCP - General 01/29/22 03/12/[address] [place] [address] Alexandru Fair MD Assigned Surgical Provider 02/07/22 [address] [place] [address] documented as of this encounter
--- OUTSIDE RECORDS SUMMARY | 2022-03-14 16:25 | XMS_ITS | Encounter Summary ---
:1980 Author Organization [place] Address [address] [place] [address]. [place] [address] Care Team Providers Name Role Phone [facility] Primary Care Provider [phone] Alexandru Fair MD Unavailable Encounter Details Date Type Department Care Team Description 03/09/2022 Travel Social History Tobacco Use Types Packs/Day Years [...] MD [address] [place] [phone] (Wo rk) documented as of this encounter Visit Diagnoses Not on filedocumented in this encounter Care Teams Die Cast Die Maker Relationship Specialty Start Date End Date [facility], [facility] PCP - General 01/29/22 03/12/[address] [place] [address] [id number] Alexandru Fair MD Assigned Surgical Provider 02/07/22 [address] [place] [address] documented as of this encounter
--- OUTSIDE RECORDS SUMMARY | 2022-03-14 16:25 | XMS_ITS | Encounter Summary ---
:1980 Author Organization [place] Address [address] [place] [address]. [place] [address] Care Team Providers Name Role Phone [facility] Primary Care Provider [phone] Alexandru Fair MD Unavailable Encounter Details Date Type Department Care Team Description 03/11/2022 Travel Social History Tobacco Use Types Packs/Day [...] MD [address] [place] [phone] (Wo rk) documented as of this encounter Visit Diagnoses Not on filedocumented in this encounter Care Teams Membership Assistant Relationship Specialty Start Date End Date [facility], [facility] PCP - General 01/29/22 03/12/[address] [place] [address] [id number] Alexandru Fair MD Assigned Surgical Provider 02/07/22 [address] [place] [address] documented as of this encounter
--- OUTSIDE RECORDS SUMMARY | 2022-03-14 16:25 | XMS_ITS | Encounter Summary ---
:1980 Author Organization [place] Address [address] [facility] [place] [address] Care Team Providers Name Role Phone [facility], [facility] Primary Care Provider [phone] Alexandru Fair MD Unavailable Reason for Visit Auth/Cert Specialty Diagnoses / Procedures Referred By Contact Refer red To Contact Surgery Diagnoses Non-toxic multinodular goiter Non-toxic multinodular goiter [E04.2] Sh Periop Servic es Procedures HC THYROIDECTOMY HC THYROIDECTOMY,MALIG,LTD NECK SURG total thyroidectomy [address] [place] [address] Phone: Referral ID Status Reason Start Date Expiration Date Visits Requ ested Visits Authorized [id number] 1 1 Encounter Details Date Type Department Care Team Description 03/11/2022 Anesthesia Event [facility] Jose Guadalupe Barrientos MD [address] [facility] [address] [place] [address] [place] [facility], [facility]ha [facility] [address] [place] [address] Anesthesia Record Procedure Summary Procedure Name Responsible Anesthesia Start Anesthesia Stop Anesthesiologist Time Time total thyroidectomy Jose Guadalupe Barrientos 03/11/22 0954 03/11/22 1256 (Bilateral Neck) MD Chanell Events Date Time Event Comment 03/11/2022 0913 0954 An Start 0954 An Start Data 0954 AN REASSESS I attest that I have identified and re-evaluated the patient immediat shawn before the induction of anesthesia and I am satisfi ed that the anesthetic plan is suitable for the patient' s condition and procedure. The first vital signs husam rded are pre- induction. Radha Chan 0959 An Induction 1002 An Intubation 1005 MD Present 1023 AN INCISION 1039 MD Present 1137 Quick Note Surgeon leaning against BP cuff - inaccurate reading 1147 MD Present 1247 AN Extubation All extubation c elliseria met prior to removal. 1249 MD Present 1251 an stop data 1256 An Stop Electronically s igned by Radha Gomez APRN CRNA on March 11, 2022 12:56 PM Name Total dexamethasone 4mg/mL 4 mg dexmedetomidine (PRECEDEX) 4 mcg/mL in sodium chloride 0.9 % 100 mL 20 mcg infusion ePHEDrine 5 mg/mL 5 mg fentaNYL (SUBLIMAZE) injection 100 mcg lidocaine 2% 80 mg midazolam 1mg/mL 2 mg ondansetron 2mg/mL 4 mg phenylephrine (IMANI-SYNEPHRINE) injection 600 mcg propofol (DIPRIVAN) injection 10 mg/mL vial 200 mg propofol infusion (mcg/kg/min) 243.31 mg rocuronium 10mg/mL 5 mg succinylcholine 20 mg/mL 80 mg ceFAZolin Sodium (ANCEF) injection 2 g 2 g remifentanil drip 50 mcg/mL (mcg/kg/min) drip 0.71 mg HYDROmorphone (DILAUDID) (PF) injection 0.5 mg/0.5 mL 0.5 mg LR 1,200 mL Agents Name NO HELIOX O2 N2O Air Exp Sevoflurane Exp Isoflurane Exp Desflurane Exp N2O Ins Sevoflurane Ins Isoflurane Ins Desflurane O2 Auxiliary Blood No blood administrations on file. Lines, Drains, and Airways Type Details Placement Removal Incision/Surgical Site 03/11/22; 1030; Neck; 03/11/22 1030 by SUTURES, STERBARBIE, 4X4, Heather Rae, RN TEGADERM Peripheral IV 03/11/22; 0912; 20 G; 03/11/22 0912 by 03/11/22 1550 by BD; Anterior, Distal, Kohout, Emilia Orozcon, Left; Lower forearm Kiana Saenz RN RN ETT Placement Date: 03/11/22 1002 by 03/11/22 1247 b y 03/11/22; Placement Jose Guadalupe Barrientos Tara A Time: 1002 (ian Lua MD via procedure documentation); Mask Ventilation: 1; Induction Type: Intravenous; Ease of Intubation: Easy; Technique: Video laryngoscopy; ETT Type: NIM tube; Tube Size: 7 mm; VL Blade Size: [place] scope 3; Grade View: 1; Adjucts: Stylet; Placement Person: SKIP MINER BLASTING Student; Attempts: 1; Depth: 22 cm Peripheral IV 03/11/22; 1005; 20 G; 03/11/22 1005 by 03/11/22 1412 by BD; Right; Wrist; Radha Chan Caro l A, Alcohol; None; RN Tolerated well documented in this encounter Social History Tobacco Use Types Packs/Day Years [...] have Coronavirus/COVID-19? documented as of this encounter OR Notes Anesthesia Postprocedure Evaluation - Jose Guadalupe Barrientos MD - 03/11/2022 3:30 PM CDT Patient: Madhuri Padilla Procedure: Procedure(s): total thyroidectomy Anesthesia Type: General Note: Disposition: Outpatient Postop Pain Control: Uneventful Sign Out: Well controlled pain PONV: No Neuro/Psych: Uneventful Sign Out: Acceptable/Baseline neuro status Airway/Respiratory: Uneventful Sign Out: Acceptable/Baseline resp. status CV/Hemodynamics: Uneventful Sign Out: Acceptable CV status Other NRE: NONE DID A NON-ROUTINE EVENT OCCUR? No Last vitals: Vitals Value Taken Time BP 104/59 03/11/22 1400 Temp 36.7 ??C (98 ??F) 03/11/22 1400 Pulse 85 03/11/22 1407 Resp 26 03/11/22 1409 SpO2 97 % 03/11/22 1410 Vitals shown include unvalidated device data. Electronically Signed By: Jose Guadalupe Barrientos MD March 11, 2022 3:30 PM Anesthesia Procedure Notes - Radha Chan - 03/11/2022 10:26 AM CDTAssociated Order(s): Airway Airway Patient location during procedure: OR Procedure Start/Stop Times: 03/11/2022 10:02 AM Staff - Anesthesiologist: Jose Guadalupe Barrientos MD SKIP MINER BLASTING: Radha Gomez APRN CRNA Other Anesthesia Staff: Radha Chan Performed By: SRNA Consent for Airway Urgency: elective Indications and Patient Condition Indications for airway management: noman-procedural Induction type:intravenous Mask difficulty assessment: 1 - vent by mask Final Airway Details Final airway type: endotracheal airway Successful airway: NIM Endotracheal Airway Details ETT size (mm): 7.0 Cuffed: yes Successful intubation technique: video laryngoscopy VL Blade Size: Glidescope 3 Grade View of Cords: 1 Adjucts: stylet Position: Right Measured from: gums/teeth Secured at (cm): 22 Bite block used: None Post intubation assessment Placement verified by: capnometry, equal breath sounds and chest rise Number of attempts at approach: 1 Secured with: pink tape Ease of procedure: easy Dentition: Intact and Unchanged Medication(s) Administered Medication Administration Time: 03/11/2022 10:02 AM Anesthesia Preprocedure Evaluation - Jose Guadalupe Barrientos MD - 03/11/2022 9:12 AM CDT Anesthesia Pre-Procedure Evaluation Patient: Madhuri Padilla : 1980 Procedure : Procedure(s): total thyroidectomy Non-toxic multinodular goiter [E04.2] Past Medical History: Diagnosis Date ??? Seasonal allergic rhinitis ??? Thyroid nodule Past Surgical History: Procedure Laterality Date ??? ARTHROSCOPIC REPAIR ACL 1998 No Known Allergies Social History Tobacco Use ??? Smoking status: Never Smoker ??? Smokeless tobacco: Never Used Substance Use Topics ??? Alcohol use: Yes Comment: 3 per week Wt Readings from Last 1 Encounters: 03/11/22 60.3 kg (132 lb 14.4 oz) Anesthesia Evaluation Pt has had prior anesthetic. Type: General. History of anesthetic complications - PONV. ROS/MED HX ENT/Pulmonary: (-) tobacco use, asthma and sleep apnea Neurologic: (+) no peripheral neuropathy (-) no seizures and no CVA Cardiovascular: (-) hypertension, CAD and arrhythmias METS/Exercise Tolerance: Hematologic: Musculoskeletal: GI/Hepatic: (-) GERD Renal/Genitourinary: (-) renal disease Endo: (+) thyroid problem, (-) Type II DM Psychiatric/Substance Use: Infectious Disease: (-) Recent Fever Malignancy: Other: Physical Exam Airway airway exam normal Mallampati: I TM distance: > 3 FB Neck ROM: full Mouth opening: > 3 cm Respiratory Devices and Support Dental no notable dental history Cardiovascular cardiovascular exam normal Pulmonary pulmonary exam normal OUTSIDE LABS: CBC: No results found for: WBC, HGB, HCT, PLT BMP: No results found for: NA, POTASSIUM, CHLORIDE, CO2, BUN, CR, GLC COAGS: No results found for: PTT, INR, FIBR POC: Lab Results Component Value Date HCG Negative 03/11/2022 HEPATIC: No results found for: ALBUMIN, PROTTOTAL, ALT, AST, GGT, ALKPHOS, BILITOTAL, BILIDIRECT, DEE OTHER: No results found for: PH, LACT, A1C, ADELE, PHOS, MAG, LIPASE, AMYLASE, TSH, T4, T3, CRP, SED Anesthesia Plan ASA Status: 1 NPO Status: NPO Appropriate Anesthesia Type: General. - Airway: ETT Induction: Intravenous. Maintenance: Balanced. Techniques and Equipment: - Airway: Video-Laryngoscope - Drips/Meds: Remifentanil Consents Anesthesia Plan(s) and associated risks, benefits, and realistic alternatives discussed. Questions answered and patient/representative personal service(s) expressed understanding. - Discussed: - Discussed with: Patient Postoperative Care Pain management: IV analgesics, Oral pain medications. PONV prophylaxis: Ondansetron (or other 5HT-3), Dexamethasone or Solumedrol, Background Propofol Infusion, Scopolamine patch Comments: Jose Guadalupe Barrientos MD documented in this encounter Miscellaneous Notes Anesthesia Care Transfer Note - Radha Gomez APRN CRNA - 03/11/2022 12:56 PM CDT Patient: Madhuri Padilla Procedure: Procedure(s): total thyroidectomy Diagnosis: Non-toxic multinodular goiter [E04.2] Diagnosis Additional Information: No value filed. Anesthesia Type: General Note: Oropharynx: oropharynx clear of all foreign objects Level of Consciousness: awake Oxygen Supplementation: face mask Independent Airway: airway patency satisfactory and stable Dentition: dentition unchanged Vital Signs Stable: post-procedure vital signs reviewed and stable Report to RN Given: handoff report given Patient transferred to: PACU Handoff Report: Identifed the Patient, Identified the Reponsible Provider, Reviewed the pertinent medical history, Discussed the surgical course, Reviewed Intra-OP anesthesia mangement and issues during anesthesia, Set expectations for post-procedure period and Allowed opportunity for questions and acknowledgement of understanding Vitals: Vitals Value Taken Time BP Temp Pulse Resp 17 03/11/22 1255 SpO2 99 % 03/11/22 1255 Vitals shown include unvalidated device data. Electronically Signed By: Radha Gomez APRN CRNA March 11, 2022 12:56 PM documented in this encounter Plan of Treatment Upcoming Encounters Date Type Specialty Care Team Description 03/26/2022 Office Visit General Surgery Alexandru Fair MD [address] [place] [address] (Wo rk) documented as of this encounter Procedures Procedure Name Priority Date/Time Associated Comments Diagnosis ANE AIRWAY ETT Routine 03/11/2022 10:02 Results f or this PERFORMABLE AM CDT procedure are i n the results section. documented in this encounter Results ANE AIRWAY ETT PERFORMABLE (03/11/2022 10:02 AM CDT) Narrative Radha Chan - 03/11/2022 10:02 AM CDT Radha Chan ? 03/11/2022 10:27 AM Airway ? Patient location during procedure : OR ? Procedure Start/Stop Times: 2021 10:02 AM Staff - ? Anesthesiologist: ??Jose Guadalupe Barrientos MD ? SKIP MINER BLASTING: Radha Gomez APRN CRN A ? Other Anesthesia Staff: Saad Chan ? Performed By: SRNA Consent for Airway ? Urgency: elective Indications and Patient Condition ? Indications for airway management : noman-procedural ? Induction type:intravenous ? Mask difficulty assessment: 1 - v ent by mask Final Airway Details ? Final airway type: endotracheal a irway ? Successful airway: NIM Endotracheal Airway Details ? ETT size (mm): 7.0 ? Cuffed: yes ? Successful intubation technique: video laryngoscopy ? VL Blade Size: Glidescope 3 ? Grade View of Cords: 1 ? Adjucts: stylet ? Position: Right ? Measured from: gums/teeth ? Secured at (cm): 22 ? Bite block used: None Post intubation assessment ? Placement verified by: capnometry , equal breath sounds and chest rise ? Number of attempts at approach: 1 ? Secured with: pink tape ? Ease of procedure: easy ? Dentition: Intact and Unchanged Medication(s) Administered Medication Administration Time: 10:02 AM Jose Guadalupe Barrientos MD [place] ANESTHESIA documented in this encounter Visit Diagnoses Not on filedocumented in this encounter Administered Medications Inactive Administered Medications - up to 3 most recent administrations Medication Order MAR Action Action Date Dose Rate Site ceFAZolin Sodium (ANCEF) injection Given 03/11/2022 10:01 AM CDT 2 g 2 g Routine, 2 g, Intravenous, PRE-OP/PRE-PROCEDURE, Starting on Wed03/11/22 at 0830, For 1 dose, Give first dose within 1 hour PRIOR to incision. If patient weight is greater than or equal to 120 kg increase dose to 3 g., Indications: Perioperative Pharmacoprophylaxis, Pre-procedure dexamethasone (DECADRON) injection Given 03/11/2022 10:05 AM CDT 4 mg Intravenous, PRN, Administer over 1 Minutes, Starting on Wed03/11/22 at 1005, Anesthesia Intra-op dexmedetomidine (PRECEDEX) 4 mcg/mL in sodium Bolus 12:47 PM CDT 8 mcg chloride 0.9 % 100 mL infusion Intravenous, CONTINUOUS PRN, Starting on Wed03/11/22 at 1041, Anesthesia Intra-op Bolus 03/11/2022 12:17 PM CDT 4 mcg New Bag 03/11/2022 10:41 AM CDT 8 mcg ePHEDrine injection Given 03/11/2022 10:54 AM CDT 5 mg Intravenous, PRN, Starting on Wed03/11/22 at 1054, Anesthesia Intra-op fentaNYL (PF) (SUBLIMAZE) injection Given 03/11/2022 12:48 PM CDT 25 mcg Intravenous, PRN, Administer over 3-5 Minutes, Starting on Wed03/11/22 at 0959, Anesthesia Intra-op Given 03/11/2022 10:24 AM CDT 25 mcg Given 03/11/2022 9:59 AM CDT 50 mcg HYDROmorphone (PF) (DILAUDID) injection Given 03/11/2022 12:10 PM CDT 0.5 mg Intravenous, PRN, Administer over 2-10 Minutes, Starting on Wed03/11/22 at 1210, Anesthesia Intra-op lactated ringers infusion New Bag 03/11/2022 11:45 AM CDT Intravenous, CONTINUOUS PRN, Anesthesia Intra-op, Starting on Wed03/11/22 at 0954, Until Wed03/11/22 at 1256 New Bag 03/11/2022 9:54 AM CDT lidocaine 2% injection (MDV) Given 03/11/2022 9:59 AM CDT 80 mg Other, PRN, Starting on Wed03/11/22 at 0959, Anesthesia Intra-op midazolam (VERSED) injection Given 03/11/2022 9:55 AM CDT 2 mg Intravenous, Administer over 2 Minutes, PRN, Starting on Wed03/11/22 at 0955, Anesthesia Intra-op ondansetron (ZOFRAN) injection Given 03/11/2022 12:25 PM CDT 4 mg Intravenous, PRN, Administer over 2-5 Minutes, Starting on Wed03/11/22 at 1225, Anesthesia Intra-op phenylephrine (IMANI-SYNEPHRINE) injection Bolus 03/11/2022 12:18 PM CDT 100 mcg Intravenous, CONTINUOUS PRN, Starting on Wed03/11/22 at 1013, Anesthesia Intra-op Bolus 03/11/2022 10:54 AM CDT 50 mcg Bolus 03/11/2022 10:48 AM CDT 100 mcg propofol (DIPRIVAN) injection 10 mg/mL v ial Given 03/11/2022 9:59 AM CDT 200 mg Intravenous, PRN, Starting on Wed03/11/22 at 0959, Anesthesia Intra-op propofol (DIPRIVAN) Rate/Dose Change 03/11/2022 10:28 20 mcg/kg/min 7 .236 mL/hr injection 10 mg/mL vial AM CDT Intravenous, CONTINUOUS PRN, Starting on Wed03/11/22 at 1002, Anesthesia Intra-op Rate/Dose Change 03/11/2022 10:17 AM CDT 50 mcg/kg/min 18.09 mL/hr New Bag 03/11/2022 10:02 AM CDT 75 mcg/kg/min 27.135 mL/hr remifentanil drip 50 Rate/Dose 03/11/2022 12:25 0.03 mcg/kg/min 2.17 1 mL/hr mcg/mL (mcg/kg/min) drip Change PM CDT Intravenous, CONTINUOUS PRN, Starting on Wed03/11/22 at 1005, Anesthesia Intra-op Rate/Dose Change 03/11/2022 12:15 PM CDT 0.05 mcg/kg/min 3.618 mL/h r Rate/Dose Change 03/11/2022 11:27 AM CDT 0.075 mcg/kg/min 5.427 mL/ hr rocuronium injection Given 03/11/2022 9:59 AM CDT 5 mg Intravenous, PRN, Starting on Wed03/11/22 at 0959, Anesthesia Intra-op succinylcholine (ANECTINE) injection Given 03/11/2022 10:00 AM CDT 80 mg Intravenous, PRN, Starting on Wed03/11/22 at 1000, Anesthesia Intra-op documented in this encounter Care Teams Spanish Translator Relationship Specialty Start Date End Date [facility] PCP - General 01/29/22 03/12/22 [address] [place] [address] Alexandru Fair MD Assigned Surgical Provider 02/07/22 [address] [place] [address] documented as of this encounter
--- OUTSIDE RECORDS SUMMARY | 2022-03-14 16:25 | XMS_ITS | Clinical Summary ---
:1980 Author Organization [place] Address [facility] [place] [address] Care Team Providers Name Role Phone Alexandru Fair MD Unavailable Laura Corona MD Primary Care Provider Allergies No known active allergies Medications Medication Sig Dispensed Refills Start End Date Status Date sertraline (ZOLOFT) Take 50 mg 0 Active 50 MG tablet by mouth daily spironolactone Take 50 mg 0 Acti ve (ALDACTONE) 50 MG by mouth tablet daily vitamin D3 Take 1 0 Active (CHOLECALCIFEROL) tablet by 50 mcg (2000 units) mouth daily tablet fluticasone [place] 1 0 Active (FLONASE) 50 spray into MCG/ACT nasal spray both nostrils every morning ergocalciferol Take 50,000 0 Act elizabeth (ERGOCALCIFEROL) Units by 1.25 MG (02683 UT) mouth Wednesday capsule and cetirizine (ZYRTEC) Take 10 mg 0 Active 10 MG tablet by mouth daily senna-docusate Take 1-2 15 tablet 0 Activ e (SENOKOT-S/PERICOLA tablets by 2 CE) 8.6-50 MG mouth 2 tabletIndications: times daily Acute post-operative pain levothyroxine Take 1 60 tablet 0 Active (SYNTHROID/LEVOTHRO tablet (100 2 ID) 100 MCG mcg) by tabletIndications: mouth daily Non-toxic multinodular goiter calcium carbonate Take 2 120 tablet 1 A ctive (OS-ADELE) 500 MG tablets 2 tabletIndications: (1,000 mg) Non-toxic by mouth 2 multinodular goiter times daily traMADol (ULTRAM) Take 1 8 tablet 0 03/14/20 Ac tive 50 MG tablet (50 2 22 tabletIndications: mg) by mouth Acute every 6 post-operative pain hours as needed for severe pain triamcinolone Dubber[place] 2 0 03/10/20 Discon tinued (NASACORT) 55 sprays into 22 (Med ication MCG/ACT nasal both Reconc iliation aerosol nostrils Clean Up) daily VITAMIN D PO 0 03/10/20 Discont inued 22 (Medicatio n Reconcilia tion Clean Up) oxyCODONE Take 1 8 tablet 0 03/11/20 Discontinu ed (Stop (ROXICODONE) 5 MG tablet (5 2 22 at Discharge) tabletIndications: mg) by mouth Acute every 4 post-operative pain hours as needed for moderate to severe pain Active Problems Problem Noted Date Non-toxic multinodular goiter 01/29/2022 Encounters Date Type Specialty Care Team Description 03/13/2022 Lab Lab Hypocalcemia; S/P thyroidecto my 03/13/2022 Telephone General Surgery Nikita Gibbs MD 03/13/2022 Telephone General Surgery Alexandru Fair MD 03/13/2022 Travel 03/11/2022 Surgery Surgery Alexandru Fair total thyroid ectomy MD Akira 03/11/2022 Anesthesia Event Surgery Jose Guadalupe Barrientos MD Brooke, Tara A 03/11/2022 Hospital Encounter Surgery Alexandru Fair Acute p ost-operative pain (Primary Dx); MD Akira Non-toxic multi nodular goiter 03/11/2022 Travel 03/09/2022 Lab Urgent Care Encounter for laboratory test ing for COVID-19 virus 03/09/2022 Travel 03/06/2022 Orders Only Urgent Care Emerson Benito, Encounter for MD laboratory test ing for COVID-19 virus 01/30/2022 Telephone General Surgery Alexandru Fair Schedule S bhavna Champion MD (Total thyroide ctomy) 01/29/2022 Office Visit General Surgery Alexandru Fair Non-toxic multinodular MD Akira goiter 01/29/2022 Travel from Last 3 Months Family History Medical History Relation Comments Hypertension Brother Diabetes Father Cerebrovascular Disease Maternal Grandfather Coronary Artery Disease Maternal Grandfather Diabetes Maternal Grandfather Hyperlipidemia Maternal Grandfather Hypertension Maternal Grandfather Anesthesia Reaction Mother Hypertension Mother Coronary Artery Disease Paternal Grandfather Diabetes Paternal Grandfather Hypertension Paternal Grandfather Relation Status Comments Brother Father Maternal Grandfather Mother Paternal Grandfather Social History Tobacco Use Types Packs/Day Years [...] was confirmed or suspected to have Coronavirus/COVID-19? Last Filed Vital Signs Vital Sign Reading [...] Mass Index 22.81 03/11/2022 8:29 AM CDT Plan of Treatment Upcoming Encounters Date Type Specialty Care Team Description 03/26/2022 Office Visit General Surgery Alexandru Fair MD [address] [place] [address] (Wo rk) Health Maintenance Due Date Last Done Comments ADVANCE CARE PLANNING 1980 ANNUAL REVIEW OF HM ORDERS 1980 PREVENTIVE CARE VISIT 1980 HIV SCREENING 08/25/1995 HEPATITIS C SCREENING 1998 PAP 2001 COVID-19 Vaccine (4 - 05/29/2021 04/03/2021, 07/31/2020, Booster for Pfizer series) 06/30/2020 PHQ-2 (once per calendar 06/07/2021 year) DTAP/TDAP/TD IMMUNIZATION 09/03/2025 09/04/2015, 09/12/2012 , (5 - Td or Tdap) 11/22/2006, Additional history exists HEPATITIS B IMMUNIZATION Completed 05/29/1997, 01/09/1997, 11/07/1996 INFLUENZA VACCINE Completed 02/23/2022, 03/07/2020, 03/16/2019, Additional history exists IPV IMMUNIZATION Aged Out No longer eligi ble based on patient 's age to complete this topic MENINGITIS IMMUNIZATION Aged Out No longe r eligible based on patient 's age to complete this topic Pneumococcal Vaccine: Aged Out No longer eligible Pediatrics (0 to 5 Years) based on patient's age and At-Risk Patients (6 to to co mplete this topic 64 Years) Procedures Procedure Name Priority Date/Time Associated Diagnosis Comme nts IONIZED CALCIUM Today 03/13/2022 2:19 PM Hypocalcemia Results for this CDT S/P thyroidectomy procedure are in the results section. SURGICAL PATHOLOGY Routine 03/11/2022 12:00 Resul ts for this EXAM PM CDT procedure are i n the results section. ANE AIRWAY ETT Routine 03/11/2022 10:02 Results f or this PERFORMABLE AM CDT procedure are i n the results section. THYROIDECTOMY, TOTAL 03/11/2022 9:34 AM Non-toxic CDT multinodular goiter Special Needs Plan is to go home after pro cedure HCG QUALITATIVE URINE STAT 03/11/2022 8:26 AM Results for this CDT procedure are i n the results section. COVID-19 VIRUS Routine 03/09/2022 9:05 AM Encounter for Result s for this (CORONAVIRUS) BY PCR CDT laboratory testing p rocedure are in for COVID-19 virus the resul ts section. LAB RESULT - HIM SCAN 02/23/2022 12:00 AM CDT from Last 3 Months Results (ABNORMAL) Ionized Calcium (03/13/2022 2:19 PM [...] City/State/ZIP Code Phon e Number [facility] LAB[facility]AT[facility] [place] [address] [facility] [facility] [address], Room 3-580 Surgical Pathology Exam (03/11/2022 12:00 PM CDT) Component Value Ref Test Analysis Performed At [facility] Range Method Time Signature Case Report Surgical Pathology Report ? Case: [id number] ? 03/13/2022 RH Authorizing Provider: ??Alexandru Flanagan MD ??Collected: ? 03/11/2022 12:00 PM ? 9:53 AM LABORATOR Y Ordering Location: ? [facility] ?Received: ?03/11/2022 12:56 PM ? CDT ? [facility] ? Pathologist: ? Mark Bower MD [...] as follows: A1-A5-left thyroid lobe A1-superior A2-mid P8-P9-qfwxwmhg to include two chni-white nodules (submitted entirely) A6-isthmus A7-A 12-right thyroid lobe A7-superior A8-mid A9-A 12-inferior to include chin-white nodule (submitted ent irely) (Kiarra De Luna) Microscopic Microscopic 03/13/2022 Description examination was 9:53 AM LABORATORY performed. CDT Performing The technical 03/13/2022 Labs component of this 9:53 AM LABORATORY testing was CDT completed at [facility] Case Images 03/13/2022 9:53 AM LABORATORY CDT Specimen Anatomical Collection Method Collection Time Receive d Time (Source) Location / / Volume Laterality Tissue THYROID STRUCTURE 03/11/2022 12:00 2021 / Unknown PM CDT 12:56 PM CDT Comment: SUTURE RIGHT SUPERIOR POLE Alexandru Fair MD LAB - DICK URIAS Performing Organization Address City/State/ZIP Code Phon [place] [address] Care Lab [address] Lab (1st floor, no room number) [place] [address], [facility] [phone] Acute Care Lab [address] 1st floor, Room 20B ANE AIRWAY ETT PERFORMABLE (03/11/2022 10:02 AM CDT) Narrative Radha Chan - 03/11/2022 10:02 AM CDT Radha Chan ? 03/11/2022 10:27 AM Airway ? Patient location during procedure : OR ? Procedure Start/Stop Times: 2021 10:02 AM Staff - ? Anesthesiologist: ??Jose Guadalupe Barrientos MD ? DIRECTOR ACCOUNT MANAGEMENT: Radha Gomez APRN CRN A ? Other [...] Time: 10:02 AM Jose Guadalupe Barrientos MD [place] ANESTHESIA HCG qualitative urine - Pre-Op (03/11/2022 8:26 AM CDT) [facility] Method Time Signature hCG Urine Negative Negative PEDRO 03/11/2022 [facility] LABORATORY Qualitative 8:34 AM CDT Comment: This test is for screening purp oses. Results should be interpreted along with the clinical picture. Confirmation testing is available if warranted by ordering [id number], HCG Quantitative . Specimen Anatomical Collection Method Collection Time Receive d Time (Source) Location / / Volume Laterality Urine URINE SPECIMEN Non-blood 03/11/2022 8:26 AM 022 8:27 OBTAINED BY CLEAN Collection / CDT AM CDT CATCH PROCEDURE / Unknown Unknown Jose Guadalupe Barrientos MD LAB - URINE ORDERABLES Performing Organization Address City/State/ZIP Code [place] [address] Care Lab [address] 1st floor, Room 20B Asymptomatic COVID-19 Virus (Coronavirus) by PCR Nose [...] using the Aptima SARS-CoV-2 Assay on the [employer] Instrument System. Additional in formation about this [...] COVID-19. This test was validated by the [facility]. This lab oratory is certified under the Clinical Laboratory Improvement Amen dments of 1987 (CLIA-88) as qualified to perform high complexity lab oratory testing. Emerson Benito MD LAB - MICRO GENERAL ORDERABL ES Performing Organization Address City/State/ZIP Code Phon e Number [facility] IDD LABORATORY [facility] [place] [address], [address] LAB RESULT - HIM SCAN (02/23/2022 12:00 AM CDT) Specimen (Source) Anatomical Location Collection Method / Collectio n Time Received Time / Laterality Volume 02/23/2022 Narrative This result has an attachment that is no t available. Provider Outside NON-BEAKER LAB TESTING from Last 3 Months Insurance Payer Benefit Plan / Subscriber ID Effective Dates Phone Addre ss Type Group BCBS [facility] FEDERAL [id number] 2011-Present [phone] [address] [address] [place] [address] Care Teams Marketing Traffic Manager Relationship Specialty Start Date End Date Laura Corona MD PCP - General Family Medicine 03/13/22 [address] [place] [address] Alexandru Fair, Assigned Surgical Provider [address] [place] [address]
--- OUTSIDE RECORDS SUMMARY | 2022-03-14 16:25 | XMS_ITS | Encounter Summary ---
:1980 Author Organization [place] Address [facility] [place] [address] Care Team Providers Name Role Phone Alexandru Fair MD Unavailable Laura Corona MD Primary Care Provider Encounter Details Date Type Department Care Team Description 03/13/2022 Travel Social History Tobacco Use Types Packs/Day [...] Visit General Surgery Alexandru Fair MD [address] [place] [address] (Wo rk) documented as of this encounter Visit Diagnoses Not on filedocumented in this encounter Care Teams Automobile Body Repair Chief Relationship Specialty Start Date End Date Laura Corona MD PCP - General Family Medicine 03/13/22 [address] [place] [address] Alexandru Fair, Assigned Surgical Provider [address] [place] [address] documented as of this encounter
--- OUTSIDE RECORDS SUMMARY | 2022-03-14 16:25 | XMS_ITS | Encounter Summary ---
:1980 Author Organization [place] Address [address] [place] [address] Care Team Providers Name Role Phone [facility] Primary Care Provider [phone] Encounter Details Date Type Department Care Team Description 01/29/2022 Travel Social History Tobacco Use Types Packs/Day [...] General Surgery Alexandru Fair MD [address] [place] [address] (Wo rk) documented as of this encounter Visit Diagnoses Not on filedocumented in this encounter Care Teams Supply Chain Technician Relationship Specialty Start Date End Date [facility] PCP - General 01/29/22 03/12/22 [address] [place] [address] documented as of this encounter
--- OUTSIDE RECORDS SUMMARY | 2022-03-14 16:25 | XMS_ITS | Encounter Summary ---
:1980 Author Organization [place] Address [facility] [place] [address] Care Team Providers Name Role Phone [facility] Primary Care Provider [phone] Alexandru Fair MD Unavailable Reason for Visit Auth/Cert Specialty Diagnoses / Procedures Referred By Contact Refer red To Contact Surgery Diagnoses Non-toxic multinodular goiter Non-toxic multinodular goiter [E04.2] Sh Periop Servic es Procedures HC THYROIDECTOMY HC THYROIDECTOMY,MALIG,LTD NECK SURG total thyroidectomy [address] [place] [address] Phone: Referral ID Status Reason Start Date Expiration Date Visits Requ ested Visits Authorized [id number] 1 1 Encounter Details Date Type Department Care Team Description 03/11/2022 Surgery [facility] Alexandru Chowdhury total th yroidectomy [facility] orlin Champion MD [address] [place] [address] [place] [address] [phone] (Wo rk) Surgery Details Date/Time Status Location OR Service Patient Case Class Case Tr auma Class Type Case? 03/11/22 10:20 Posted [facility] OR OR M 22 General Same Day AM Surgery Panel 1 Procedure LRB Anes Op Region Wound Class Commen ts total thyroidectomy Bilateral General Neck I-Clean Surgeon Surgeon Role Service Panel Alexandru Fair MD Primary General 1 Jael Jacinto PA-C Assisting Railroad Watchman Authorization 1 Special Needs Plan is to go home after procedure documented in this encounter Social History Tobacco [...] Sign Reading Time Taken Comments Blood Pressure 106/60 03/11/2022 1:15 PM CDT Pulse 81 03/11/2022 1:15 PM CDT Temperature 36.7 ??C (98 ??F) 03/11/2022 1:15 PM CDT Respiratory Rate 28 03/11/2022 1:15 PM CDT Oxygen Saturation 97% 03/11/2022 1:15 PM CDT Inhaled Oxygen Concentration - - Weight 60.3 kg (132 lb 14.4 oz) 03/11/2022 8:29 AM CDT Height 162.6 cm (5' 4) 03/11/2022 8:29 AM CDT Body Mass Index 22.81 03/11/2022 8:29 AM CDT documented in this encounter Discharge Instructions Discharge InstructionsKellie Walton RN - 03/11/2022 1:02 PM CDT [facility] - [facility] Discharge Instructions: [...] pain medication. However, if you are taking [place] or Percocet, do not take any additional [...] 2 weeks. Please call our office at [phone] to schedule your appointment. We are located at [address] [place] [address]. CALL OUR OFFICE AT [phone] IF YOU HAVE: Chills or fever above [...] (ERGOCALCIFEROL) 1.25 MG by mouth Wednesday and ([address] UT) capsule fluticasone (FLONASE) 50 [place] 1 spray into 0 MCG/ACT nasal spray [...] of this encounter Progress Notes Aury Buck M - 03/10/2022 11:25 AM CDT ARRANGING FUNERAL DIRECTOR medications updated by Medication Scribe prior to [...] Medication Sig Last Dose Taking? Auth Provider Prison End Date fluticasone (FLONASE) 50 MCG/ACT nasal spray [place] 1 spray into both nostrils every morning [...] Pt pale and diaphoretic upon arrival to [facility]. Iv fluids increased. Kellie Walton RN - [...] Miscellaneous Notes Brief Op Note - Jael Jacinot PA-C - 03/11/2022 1:10 PM CDT [facility] General Surgery Brief Operative Note Pre-operative diagnosis: Non-toxic multinodular goiter [E04.2] Post-operative diagnosis Same Procedure: Procedure(s): total thyroidectomy Surgeon(s), Railroad Watchman(s): Surgeon(s) and Role: * Alexandru Fair MD [...] Ancef IV. SURGEON: Alexandru Fair MD, MD MARINE PIPEFITTER: Jael Jacinto PA-C. assistant credit manager was necessary due to challenging exposure and [...] Office Visit General Surgery Alexandru Fair MD [address] [place] [address] (Wo rk) documented as of this encounter [...] Component Value Ref Test Analysis Performed At [facility] gist Range Method Time Signature Case Report Surgical Pathology Report ? Case: [id number] ? 03/13/2022 Authorizing Provider: ??Alexandru Flanagan MD ??Collected: ? 03/11/2022 12:00 PM ? 9:53 AM LABORATOR Y Ordering Location: ? [facility] ?Received: ?03/11/2022 12:56 PM ? CDT ? [facility] ? Pathologist: ? Mark Bower [...] as follows: A1-A5-left thyroid lobe A1-superior A2-mid [id number]-hyinahjd to include two chin-white nodules (submitted entirely) A6-isthmus A7-A 12-right thyroid lobe A7-superior A8-mid A9-A 12-inferior to include chin-white nodule (submitted ent irely) (Kiarra De Luna) Microscopic Microscopic 03/13/2022 Description examination was 9:53 AM LABORATORY performed. CDT Performing The technical 03/13/2022 Labs component of this 9:53 AM LABORATORY testing was CDT completed at [facility] Case Images 03/13/2022 9:53 AM LABORATORY CDT Specimen Anatomical Collection Method Collection Time Receive d Time (Source) Location / / Volume Laterality Tissue THYROID STRUCTURE 03/11/2022 12:00 2021 / Unknown PM CDT 12:56 PM CDT Comment: SUTURE RIGHT SUPERIOR POLE Alexandru Fair MD LAB - DIKC URIAS Performing Organization Address City/State/ZIP Code [place] [phone] Care Lab [address] Lab (1st floor, no room number) [place] [address], [facility] Acute Care Lab [address] 1st floor, Room 20B HCG qualitative urine - Pre-Op (03/11/2022 8:26 AM CDT) Patholo gist Method Time Signature hCG Urine Negative Negative PEDRO 03/11/2022 LABORATORY Qualitative 8:34 AM CDT Comment: This test is for screening purp oses. Results should be interpreted along with the clinical picture. Confirmation testing is available if warranted by ordering [id number], HCG Quantitative . Specimen Anatomical Collection Method Collection Time Receive d Time (Source) Location / / Volume Laterality Urine URINE SPECIMEN Non-blood 03/11/2022 8:26 AM 022 8:27 OBTAINED BY CLEAN Collection / CDT AM CDT CATCH PROCEDURE / Unknown Unknown Jose Guadalupe Barrientos MD LAB - URINE ORDERABLES Performing Organization Address City/State/ZIP Code Phon e Number LAB[place]ATORY [place] [address] [facility] Lab [address] 1st floor, Room 20B LAB RESULT - [...] pain Non-toxic multinodular goiter Nontoxic multinodular goiter Non-toxic multinodular goiter Nontoxic multinodular goiter documented in this encounter Administered Medications Inactive Administered Medications - up to 3 most recent administrations Medication Order MAR Action Action Date Dose Rate Site bupivacaine 0.25 % - EPINEPHrine Given 03/11/2022 12:37 PM CDT 3 mLs 1:200,000 injection PRN, Starting on Wed03/11/22 at 1237, Intra-procedure fentaNYL (PF) (SUBLIMAZE) injection 25 m cg [...] previous patch before applying new patch., Pre-procedure sodium chloride 0.9% (bottle) irrigation Given 03/11/2022 10:22 AM CDT 1,000 mLs PRN, Starting on Wed03/11/22 at 1022, Intra-procedure traMADol (ULTRAM) tablet 50 mg Given 03/11/2022 [...] Provider: Radha Chan) Routine, 2 g, Intravenous, PRE-OP/PRE-LA OCEDURE, Starting on Wed03/11/22 at 0830, For [...] 1 patch, Transdermal, EVERY 72 HOURS, Ad warp tension tester over 72 Hours, First dose on Wed03/11/22 [...] mg (COMPLETED) 1528 (Given - Provider: Herlinda Davis RN) 50 mg, Oral, ONCE PRN, moderate pain, St arting on Wed03/11/22 at 1521, For 1 dose, PACU/Phase II documented in this encounter Care Teams Warp Placer Relationship Specialty Start Date End Date [facility] PCP - General 01/29/22 03/12/22 [address] [place], [place] [id number] Alexandru Fair MD Assigned Surgical Provider 02/07/22 [address] [address] documented as of this encounter
--- OUTSIDE RECORDS SUMMARY | 2022-03-14 16:25 | XMS_ITS | Clinical Summary ---
:1980 Author Organization [facility] [place] [address] Care Team Providers Name Role Phone Laura Corona DO Primary Care Provider Allergies No known active allergies Medications Medication Sig Dispensed Refills Start End Date Status Date fluticasone (50 mcg Inhale 1 1 Bottle 0 Active per actuation) nasal Hearne into 4 solution (FLONASE) both nostrils 2 times daily. cetirizine (ZYRTEC) Take 1 tablet 0 Active 10 mg tablet by mouth once 5 daily. multivitamin (MVI) Take 1 tablet 0 Active tablet by mouth once 9 daily. sertraline (ZOLOFT) Take 1 Tablet 90 Tablet 4 Active 50 mg (50 mg) by 2 tabletIndications: mouth once Anxiety daily. spironolactone Take 1 Tablet 90 Tablet 1 A ctive (ALDACTONE) 50 mg (50 mg) by 2 tabletIndications: mouth once Acne vulgaris daily. cholecalciferol Take 1 0 Acti ve (Vitamin D-3) 2,000 Capsule 2 unit capsule (2,000 units) by mouth once daily. Cholecalciferol, Take by mouth 0 02/24/20 Discontinued Vitamin D3, (VITAMIN once daily. 5 22 (*Medication D-3) 5,000 unit tab adjustment) ergocalciferol Take 1 32 capsule 0 02/15/202 09/19/20 Disc ontinued (VITAMIN D2; capsule by 1 (*Med DRISDOL) 50,000 unit mouth every complete/Regimen capsuleIndications: Wednesday and complete/Level Vitamin D deficiency . of care change) Active Problems Problem Noted Date Vitamin D deficiency 07/14/2013 Thyroid nodule 07/13/2013 Overview: Benign, on bx 2009 Allergic rhinitis, cause unspecified 11/22/2006 Resolved Problems Problem Noted Date Resolved Date Normal delivery 11/22/2012 11/24/2021 Supervision of other normal 04/25/2012 Normal delivery 05/07/2010 04/25/2012 care and examination of lactating mother 05/07/2004/25/2012 Supervision of normal first 11/12/2009 Encounters Date Type Specialty Care Team Description 03/09/2022 Telephone Laura Corona, Fax adde ndum DO 02/23/2022 Preop Visit Laura Corona, Pre-Op E xam (03/11/2022 DO total thyroidectomy// //); Immunization/In jection 02/23/2022 Travel 02/02/2022 Ancillary Procedure 02/02/2022 Travel from Last 3 Months Immunizations Name Administration Dates Next Due COVID-19 vaccine (Matches [employer] 04/03/2021, 07/31/2020, 30mcg/0.3mL) PF, MDV Hepatitis A (Peds) 11/15/1998, 05/01/1995 Hepatitis B (Peds) 05/29/1997, 01/09/1997, 11/07/1996 Influenza RIV4 (Age 18+ Years) 04/07/2017 PRESERV FREE Influenza, IIV3 (Age >=3 years) 03/16/2019, 04/25/2012, 02/2011, 03/18/2010 Influenza, IIV4 02/23/2022, 03/07/2020, 03/21/2018, 03/18/2015, 03/07/1990 MMR 02/27/1992 Td (Age >=7 Years) 11/07/1996 Tdap 09/04/2015, 09/12/2012, 11/22/200609/12 Family History Medical History Relation Name Comments Diabetes Father Type II Diabetes Maternal Grandfather Heart Disease Maternal Grandfather Hyperlipidemia Maternal Grandfather Hypertension Maternal Grandfather Other Maternal Grandmother melanoma Hypertension Mother Other Other nephew with CF, brother's child Cancer-breast Paternal Aunt Aortic aneurysm Paternal Grandmother Diabetes Paternal Uncle Psychiatric illness Sister 2 Cancer-ovarian No Family History Relation Name Status Comments Brother Alive Father Alive Maternal Grandfather Alive Maternal Grandmother Alive Mother Alive Other Paternal Aunt Paternal Grandfather Paternal Grandmother Paternal Uncle Sister 1 Alive Sister 2 Son Alive Social History Tobacco Use Types Packs/Day Years Used Date Never Smoker Smokeless Tobacco: Never Used Tobacco Cessation: Counseling Given: Yes Alcohol Use Standard Drinks/Week Comments Yes 0 (1 standard drink = 0.6 oz pure alcoho l) ocass Alcohol Habits Answer Date Recorded How often do you have a drink containing alcohol? Not asked How many drinks containing alcohol do you have on a typical Not asked day when you are drinking? How often do you have six or more drinks on one occasion? No t asked Comment: ocass 01/10/2013 Sex Assigned at Date Recorded Not on file COVID-19 Exposure Response Date Recorded In the last 10 days, have you been in contact with No / Unsu re 02/23/2022 8:27 AM CDT someone who was confirmed or suspected to have Coronavirus/COVID-19? Obstetrics History Para Term AB IAB SAB Ectopic Multiple Living Live Births 3 3 3 0 0 0 0 0 0 3 2 Date Outcome GA Total Labor/2nd/3rd Weight Sex Delivery Anes PTL Flores A 1 A5 Name Clin Labor 05/07 Term 39w M Vag Dariela Marcelo 2d ng Delivery Location: [facility] Comments: BLN: Same Peds: Ady 11/22/2012 Term 40w0d 3.77 kg (8 lb 5 F Vag Living 7 8 MADHU,BABY GIRL ( oz) DORINA ) Delivery Location: [facility] Comments: LEEROY:MADHU PEDS:Ajay MESA ND 10/14/2015 Term 3.77 kg (8 lb 5 oz) F Vag Last Filed Vital Signs Vital Sign Reading Time Taken Comments Blood Pressure 113/73 02/23/2022 8:39 AM CDT Pulse 60 02/23/2022 8:39 AM CDT Temperature 37 ??C (98.6 ??F) 02/23/2022 8:39 AM CDT Respiratory Rate 20 05/26/2017 7:52 AM HEART COORDINATOR Oxygen Saturation 99% 02/23/2022 8:39 AM CDT Inhaled Oxygen Concentration - - Weight 60.6 kg (133 lb 11.2 oz) 02/23/2022 8:39 AM CDT Height 162.6 cm (5' 4) 11/24/2021 7:52 AM CDT Body Mass Index 22.95 11/24/2021 7:52 AM CDT Plan of Treatment Health Maintenance Due Date Last Done Comments COVID-19 vaccine series (4 - 05/29/2021 04/03/2021, 021, Booster for Pfizer series) 06/30/2020 BMI (ht and wt on same day) for 11/24/2022 11/24/2021, 01/2021, age 18+ 06/12/2019, Additional history exists Depression screening for age 12+ 11/24/2022 11/24/2021, 01/2021, 06/12/2019, Additional history exists Pap test for age 21-65 07/15/2025 07/15/2020, 07/15/2020, 11/29/2015, Additional history exists Tetanus booster 09/03/2025 09/04/2015, 09/12/2012, 11/22/2006, Additional history exists Tdap Completed 09/04/2015, 09/12/2012, 11/22/2006 Hepatitis C screening for age Completed 11/24/2021 18-79 Influenza for age 9-49 Completed 02/23/2022, 03/07/2020, 03/16/2019, Additional history exists Procedures Procedure Name Priority Date/Time Associated Diagnosis Comme nts BASIC METABOLIC Routine 02/23/2022 9:36 AM Pre-op exam Result s for this PANEL CDT procedure are i n the results section. XR MAMMO MYRON BILAT Routine 02/02/2022 10:07 AM Visit for scre ening Results for this SCREEN CDT mammogram procedure are i n the results section. from Last 3 Months Results (ABNORMAL) BASIC METABOLIC PANEL (02/23/2022 9:36 AM CDT) Analysis Performed At [facility] Time Signature SODIUM 139 135 - 145 02/24/2022 [facility] mmol/L 10:32 AM CDT [facility] POTASSIUM 4.7 3.5 - 5.0 02/24/2022 [facility] mmol/L 10:32 AM CDT [facility] CHLORIDE 110 98 - 110 02/24/2022 [facility] mmol/L 10:32 AM CDT [facility] CO2,TOTAL 19 (L) 21 - 31 02/24/2022 [facility] mmol/L 10:32 AM CDT [facility] ANION GAP 10 5 - 18 02/24/2022 [facility] 10:32 AM CDT [facility] GLUCOSE 105 (H) 65 - 100 02/24/2022 [facility] mg/dL 10:32 AM CDT [facility] CALCIUM 9.1 8.5 - 10.5 02/24/2022 [facility] mg/dL 10:32 AM CDT [facility] BUN 13 8 - 25 02/24/2022 [facility] mg/dL 10:32 AM CDT [facility] CREATININE 0.75 0.57 - 02/24/2022 [facility] 1.11 mg/dL 10:32 AM CDT [facility] BUN/CREAT RATIO 17 10 - 20 02/24/2022 [facility] 10:32 AM CDT [facility] eGFR >90 >90 02/24/2022 [facility] mL/min/1.7 10:32 AM CDT [facility] 3m2 [facility] Comment: As of 2021, eGFR is calcu lated by the CKD-EPI creatinine equation without race adjustment. eGFR can be inf luenced by muscle mass, exercise, and diet. The reported eGFR is an estimation only and is only applicable if the renal function is stable. Specimen Anatomical Collection Method / Collection Time Recei harshil Time (Source) Location / Volume Laterality Blood BLOOD SPECIMEN / Venipuncture / 02/23/2022 9:36 2021 9:36 Unknown Unknown AM CDT AM CDT Laura Corona DO CHEMISTRY Performing Organization Address City/State/ZIP Code Phon e Number [facility] [address] [place] [address] [facility] LABORATORY XR MAMMO MYRON BILAT SCREEN (02/02/2022 10:07 AM CDT) Anatomical Region Laterality Modality BREASTS, Breast Left, Breast Right Bilateral Mammo graphy Specimen (Source) Anatomical Location Collection Method / Collectio n Time Received Time / Laterality Volume Impressions 02/03/2022 6:56 AM CDT ??There is no radiographic evidence for malignancy. ??Recommend annual mammograms. MAMMOGRAM ASSESSMENT: ??ACR 2 Benign PATIENTS: You will also receive a letter with your examination results in an easy to read format. ??If you have qu estions about your results, please contact your referring provider.3 Narrative 02/03/2022 6:56 AM CDT For Patients: As a result of the Century Cures Act, medical imaging exams and procedure reports are released immediately into your electronic medical record. You may view this report before your referring provider. If you have questions, please contact the [facility] care provider. XR MAMMO MYRON BILAT SCREEN [[id number]] CLINICAL HISTORY: ??This is an asymptoma tic 41 y.o. patient. INDICATION FOR EXAM: Mammogram Screening . TECHNIQUE: CC & MLO views were obtained. ??This study was evaluated with the assistance of Computer-Aided Detecti on. Breast Tomosynthesis was used in interpretation. COMPARISON FILMS: Yes3 12/16/20 [facility] 12/04/19 [facility] FINDINGS: ??The breasts have scattered a reas of fibroglandular density. ??No suspicious masses or microcalcifications . ??Benign appearing calcifications within both breasts. Laura Corona DO MAMMO from Last 3 Months Insurance Payer Benefit Plan / Subscriber ID Effective Dates Phone Addre ss Type Group [employer] [place] [id number] 2017-Present [address] [address] [place] [address] [place] [employer] Employer [phone] [id number] [place] [employer]Work) [place] [address] Advance Directives Latest Code Status on File Code Status Date Activated Date Inactivated Comments Full Code 11/22/2012 11:34 AM 11/22/2012 2:38 PM Full Code 11/22/2012 10:59 AM 11/22/2012 11:34 AM Full Code 05/07/2010 7:41 AM 05/07/2010 10:49 PM Care Teams Operations Associate Relationship Specialty Start Date End Date Laura Corona DO PCP - General Family Practice 01/10/[address] [place] [address]
[2022-03-14 16:35] LABS: Ionized Calcium* 0.96 mmol/L (1.11-1.30)
[2022-03-14 16:38] LABS: Basophils Absolute Auto 0.04 K/uL (0.00-0.30); Basophils Percent Auto 0.6 % (0.0-3.0); Eosinophils Absolute Auto 0.11 K/uL (0.00-0.50); Eosinophils Percent Auto 1.7 % (0.0-7.0); Hematocrit 38.2 % (33.0-51.0); Hemoglobin* 12.6 gm/dL (12.0-16.0); Immature Granulocytes Abs Auto 0.01 K/uL (0.00-0.30); Lymphocytes Absolute Auto 1.52 K/uL (0.90-2.90); Lymphocytes Percent Auto 23.7 % (20-44); Mean Corpuscular HGB Conc 33 gm/dL (32-36); Mean Corpuscular Hemoglobin 28 pg (26-34); Mean Corpuscular Volume 85 fL (80-100); Monocytes Percent Auto 7.9 % (0.0-11.0); Neutrophils Absolute Auto 4.23 K/uL (1.7-7.0); Neutrophils Percent Auto 65.9 % (42.0-72.0); Platelet Count* 236 K/uL (140-440); White Blood Count* 6.42 K/uL (4.50-11.00)
[2022-03-14 16:47] LABS: Slide Review Reflex No
[2022-03-14 16:51] LABS: Chloride* 103 mmol/L (96-114)
[2022-03-14 16:52] LABS: Potassium* 3.3 mmol/L (3.6-5.1); Sodium* 140 mmol/L (135-149)
[2022-03-14 16:54] LABS: Carbon Dioxide* 27 mmol/L (20-32); Creatinine* 0.7 mg/dL (0.5-1.5); Est. Creatinine Clearance* 91.33; Estimated Glomerular Filt Rate 111 ml/min
[2022-03-14 16:55] LABS: Blood Urea Nitrogen* 9 mg/dL (5-24); Calcium* 7.7 mg/dL (8.4-10.6); Glucose* 98 mg/dL (60-115); Magnesium* 1.4 mg/dL (1.5-2.6)
[2022-03-14 17:12] LABS: SARS PCR* Negative SARS-CoV-2 (Negative)
--- NOTE | 2022-03-14 17:15 | P.IMHP_ITS ---
Hospitalist- H&P: HPI History of Present Illness Date Seen: 03/14/22 Chief complaint: Low calcium, tingling/cramps Narrative: Madhuri Padilla is a 41 year old female who presents to the emergency with her for symptomatic hypocalcemia. Has felt tingly in extremities since her thyroidectomy which was performed 3 days ago. She started noting some spasms in her face, and called her surgeon yesterday to have her calcium checked. It was found to be low (3.9, with normal 4.4-5.2 on that lab scale) and surgeon recommended increasing her calcium supplementation from thrice daily to 4 times per day. Symptoms persisted, so she presented to the emergency room today. She has had no chest pain, dyspnea, palpitations, abdominal pain, or skin concerns. ER course and findings: - Hypocalcemia with ionized Calcium of 0.96, also had mild hypocalcemia and hypomagnesemia - + Chvostek sign - given 1 g IV calcium gluconate Patient is generally healthy, had her thyroidectomy for a mass to rule out follicular carcinoma. 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 She is on low-dose Spironolactone for her skin, and low-dose Sertraline for control anxiety her PCP is Dr. Chloe shell. Lives with (who would be medical decision maker if needed) and 3 children. 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 Nonsmoker. COVID vaccinated. Requests full code status. Review of Systems Status of ROS: Reports: 10 or more systems reviewed and unremarkable except as noted in History and below [facility] Medical History (Updated 03/14/22 @ 18:16 by Marylin Vanegas MD) Hypothyroidism (acquired) Surgical History (Updated 03/14/22 @ 18:01 by Marylin Vanegas MD) History of thyroidectomy, total S/P ACL surgery Meds Home Medications and Allergies Home Medications Medication Instructions Recorded Confirmed Type calcium 500 mg tablet 2,000 mg PO DAILY 03/14/22 03/14/22 History ergocalciferol (vitamin D2) 1,000 2,000 unit PO DAILY 03/14/22 03/14/22 History unit capsule levothyroxine 100 mcg tablet 100 mcg PO DAILY 03/14/22 03/14/22 History sertraline 50 mg tablet 50 mg PO DAILY 03/14/22 03/14/22 History spironolactone 50 mg tablet 50 mg PO DAILY 03/14/22 03/14/22 History tramadol 50 mg tablet mg 03/14/22 History Home Medication Comments: Patient given Tramadol after surgery 03/11, not using this. Allergies Allergy/AdvReac Type Severity Reaction Status Date / Time No Known Drug Allergies Allergy Verified 03/14/22 15:49 Exam Narrative: Exam Narrative: GEN: Alert and oriented, sitting comfortably in bed HEENT: Normal external ears, EOMIs bilaterally, no scleral icterus CV: RRR, No concerning murmurs, rubs, or gallops R: LCTA bilaterally without concerning wheezing, rales, or rhonchi Ext: wwp, no concerning edema Skin: No concerning skin lesions or rashes on exposed skin Neuro: + Chvostek sign, no resting tremor, no focal abnormalities Psych: Appropriate Const: Vital Signs, click to edit/add: Vital Signs - 24 hr 03/14/22 15:47 03/14/22 16:35 03/14/22 16:36 Temperature 97.8 F Pulse Rate 75 73 Pulse Rate [Right Pulse Oximeter] 67 Respiratory Rate 18 Blood Pressure 128/86 Blood Pressure [Ri ght Upper Arm] 123/77 Pulse Oximetry 100 100 100 Oxygen Delivery [facility] Room Air 03/14/22 17:00 03/14/22 17:01 Temperature Pulse Rate 68 69 Pulse Rate [Right Pulse Oximeter] Respiratory Rate Blood Pressure 122/90 H Blood Pressure [Ri ght Upper Arm] Pulse Oximetry 100 100 Oxygen Delivery [facility] Hospitalist - H&P: Result Labs Labs: Short CBC 03/14/22 Range/Units 16:03 WBC 6.42 (4.50-11.00) K/uL Hgb 12.6 (12.0-16.0) gm/dL Hct 38.2 (33.0-51.0) % Plt Count 236 (140-440) K/uL BMP 03/14/22 16:03 Sodium 140 Potassium 3.3 L Chloride 103 Carbon Dioxide 27 BUN 9 Creatinine 0.7 Glucose 98 Calcium 7.7 L Assessment and Plan Assessment and plan (1) Hypocalcemia: Problem comment: thyroidectomy 03/11/2022 Status: Acute Assessment and Plan: Given symptoms, will replace with IV calcium and follow electrolytes closely. (2) Hypomagnesemia: Status: Acute Assessment and Plan: Replace IV. (3) Hypokalemia: Status: Acute Assessment and Plan: Mild, replace orally and follow. (4) Hypothyroidism (acquired): Status: Acute Assessment and Plan: Continue home levothyroxine dosing and outpatient follow-up for this. Plan - per above - anticipate short hospital stay, prophylaxis with ambulation and SCDs
--- NOTE | 2022-03-14 17:20 | ED.NURSE ---
Patient exhibits positive Chvostek's sign at this time.
--- NOTE | 2022-03-14 17:58 | W.PC.EDHO ---
Primary Language: Nepali Preferred Language: Orientation Status: [x] Alert & Oriented [] Slight Confusion [] Known Dx Dementia Transfers By: [x] Assist of 1 [] Assist of 2 [] Lift Active Medications Generic Name Dose Route Start Last Admin Trade Name Freq PRN Reason Stop Dose Admin Calcium Gluconate/Sodium Chloride 1,000 mg 03/14/22 16:44 03/14/22 17:04 Calcium Gluc 1000 Mg/50 Ml Premix Bag IVPB 03/14/22 16:45 1,000 mg ONCE ONE Administration Description of Symptoms ED Triage Present Problem pt here with c/o tingling in arms and face, has Description been dealing with calcium being low and was told to increase supplement and be seen if worse, total thyroidectomy Wed at ED Triage Date of Onset of 03/11/22 Symptoms Female History Patient No IV Insertion/Site Date of IV Line Insertion [ 03/14/22 Right Antecubital] Oxygen Administration Pulse Oximetry 100 Pulse Oximetry 100 Pulse Oximetry 100 Pulse Oximetry 100 Pulse Oximetry 100 Pulse Oximetry 100 Pulse Oximetry 100 Pulse Oximetry 100 Oxygen Delivery Method Room Air Cardiac Monitoring EKG Method 12 Lead
[2022-03-14] MEDS: POTASSIUM BICARB 25 MEQ EFFERVESCENT TAB PO ×3 (19:30→21:58)
--- NOTE | 2022-03-14 19:30 | PC.NURSE ---
pt up to floor at 1836 - calcium grupo. tele on. pt denies pain positive Trousseaus sign with BP reading. pt reports tingling of hands and cramping. SCD's on.
[2022-03-14] MEDS: MAGNESIUM SULFATE 2 GM/50 ML PIGGYBACK IVPB (19:42)
[2022-03-14 21:58] LABS: Ionized Calcium* 1.06 mmol/L (1.11-1.30)
[2022-03-14 22:14] LABS: Chloride* 99 mmol/L (96-114); Potassium* 4.1 mmol/L (3.6-5.1); Sodium* 137 mmol/L (135-149)
[2022-03-14 22:17] LABS: Blood Urea Nitrogen* 9 mg/dL (5-24); Carbon Dioxide* 29 mmol/L (20-32); Creatinine* 0.6 mg/dL (0.5-1.5); Est. Creatinine Clearance* 106.55; Estimated Glomerular Filt Rate 116 ml/min; Glucose* 97 mg/dL (60-115)
[2022-03-14 22:18] LABS: Calcium* 8.5 mg/dL (8.4-10.6)
[2022-03-15] VITALS (8 sets, daily range): BP systolic 96–115; BP diastolic 65–77; PULSE 65–92; RESP 16–18; TEMP 36.3–36.8; O2SAT 97–99
--- NOTE | 2022-03-15 05:17 | NUTR.NU ---
Shift Note : Pt pleasant and cooperative, VSS, afebrile, LS clear, BS active, pt up ad jocelyn in the room. Pt denies feeling pins and needles in hands and feet after first 2 doses of Calcium Gluconate. Slight tetany of the left thumb and index finger with 2300 vitals check, MD aware. See eMAR for medication administration. Tele shows NSR. Adequate urinary output of clear yellow urine.
[2022-03-15] MEDS: LEVOTHYROXINE 100 MCG TABLET PO (05:44)
[2022-03-15 07:02] LABS: Ionized Calcium* 0.91 mmol/L (1.11-1.30)
[2022-03-15 07:39] LABS: Chloride* 99 mmol/L (96-114); Potassium* 4.2 mmol/L (3.6-5.1); Sodium* 136 mmol/L (135-149)
[2022-03-15 07:42] LABS: Carbon Dioxide* 27 mmol/L (20-32); Creatinine* 0.7 mg/dL (0.5-1.5); Est. Creatinine Clearance* 91.33; Estimated Glomerular Filt Rate 111 ml/min
[2022-03-15 07:43] LABS: Blood Urea Nitrogen* 10 mg/dL (5-24); Calcium* 7.4 mg/dL (8.4-10.6); Glucose* 113 mg/dL (60-115); Magnesium* 1.8 mg/dL (1.5-2.6)
[2022-03-15] MEDS: SERTRALINE 50 MG TABLET PO (08:44)
[2022-03-15] MEDS: CALCIUM CARBONATE 500 MG TABLET 2000 MG PO ×2 (08:44→17:47)
--- NOTE | 2022-03-15 09:14 | P.IMPN_ITS ---
Progress Note: A&P Assessment and plan (1) Hypocalcemia: Problem details: -thyroidectomy 03/11/2022 -increased oral to 2 grams calcium bid w/meals with tid vit D -on calcium infusion (11 grams in 20 hours), f/u labs ordered. Status: Acute (2) Hypothyroidism (acquired): Problem details: tsh at goal Status: Acute (3) Hypomagnesemia: Problem details: replacing Status: Acute (4) Hypokalemia: Problem details: replacing Status: Acute Subjective Date Seen: 03/15/22 Interval history: Daily Progress Note - Hospital Medicine Day #:2 CC: persistent hypocalcemia OVERNIGHT UPDATES FROM STAFF & MED, LAB, IMAGING UPDATES Symptoms have much abated of tingling in her face and muscle cramps in her fingers. However, her tingling was in decreasing this morning and that correlates with an return to absolute hypocalcemia noted even worse from admission. CBC last night and 4:00 p.m. was unremarkable next Ionized calcium has been 0.96, 0.06, 0.91 and this afternoon 1.0 - 11grams in a liter of NS running at 50cc/hour. Magnesium pending from recheck of 1.8 this morning Vit D is at 40 ng/ml Review of Systems: See subjective Cardiac: No new chest pain/pressure/palpitations. Respiratory: no new dyspnea. GI: No abdominal bloating Neuro: Reported tingling paresthesias in her arms and face Objective: Vitals: see above Lungs: Clear. Cardiac: S1S2. Neurologically: No deficits Disposition/Potential discharge - Likely to return to previous living situation. Total time is 35 minutes with greater than 50% spent in counseling and coordination of care. Exam Const: Vital Signs, click to edit/add: Vital Signs - 24 hr 03/14/22 15:47 03/14/22 16:35 03/14/22 16:36 Temperature 97.8 F Pulse Rate 75 73 Pulse Rate [Right Pulse Oximeter] 67 Pulse Rate [Right Radial] Respiratory Rate 18 Blood Pressure 128/86 Blood Pressure [Le ft Arm] Blood Pressure [Ri ght Upper Arm] 123/77 Pulse Oximetry 100 100 100 Oxygen Delivery [facility] Room Air 03/14/22 17:00 03/14/22 17:01 03/14/22 17:02 Temperature Pulse Rate 68 69 67 Pulse Rate [Right Pulse Oximeter] Pulse Rate [Right Radial] Respiratory Rate Blood Pressure 122/90 H Blood Pressure [Le ft Arm] Blood Pressure [Ri ght Upper Arm] Pulse Oximetry 100 100 100 Oxygen Delivery [facility] 03/14/22 17:30 03/14/22 17:31 03/14/22 17:32 Temperature Pulse Rate 73 66 65 Pulse Rate [Right Pulse Oximeter] Pulse Rate [Right Radial] Respiratory Rate Blood Pressure 126/94 H Blood Pressure [Le ft Arm] Blood Pressure [Ri ght Upper Arm] Pulse Oximetry 100 100 100 Oxygen Delivery [facility] 03/14/22 18:00 03/14/22 18:01 03/14/22 18:02 Temperature Pulse Rate 65 68 66 Pulse Rate [Right Pulse Oximeter] Pulse Rate [Right Radial] Respiratory Rate Blood Pressure 119/88 Blood Pressure [Le ft Arm] Blood Pressure [Ri ght Upper Arm] Pulse Oximetry 100 100 100 Oxygen Delivery [facility] 03/14/22 18:30 03/14/22 18:31 03/14/22 18:51 Temperature 97.8 F Pulse Rate 69 65 Pulse Rate [Right Pulse Oximeter] Pulse Rate [Right Radial] 65 Respiratory Rate 18 Blood Pressure 122/90 H Blood Pressure [Le ft Arm] 124/82 Blood Pressure [Ri ght Upper Arm] Pulse Oximetry 100 100 100 Oxygen Delivery [facility] Room Air 03/14/22 19:00 03/14/22 22:13 03/14/22 22:14 Temperature 97.5 F L Pulse Rate 62 Pulse Rate [Right Pulse Oximeter] Pulse Rate [Right Radial] 70 67 Respiratory Rate 16 16 Blood Pressure Blood Pressure [Le ft Arm] 124/82 Blood Pressure [Ri ght Upper Arm] Pulse Oximetry 100 Oxygen Delivery [facility] Room Air 03/14/22 22:14 03/15/22 03:00 03/15/22 07:00 Temperature 97.3 F L 97.4 F L Pulse Rate Pulse Rate [Right Pulse Oximeter] Pulse Rate [Right Radial] 67 65 71 Respiratory Rate 16 16 16 Blood Pressure Blood Pressure [Le ft Arm] 124/84 96/65 Blood Pressure [Ri ght Upper Arm] Pulse Oximetry 99 98 Oxygen Delivery [facility] Room Air Room Air 03/15/22 07:00 Temperature 97.4 F L Pulse Rate Pulse Rate [Right Pulse Oximeter] Pulse Rate [Right Radial] 71 Respiratory Rate 16 Blood Pressure Blood Pressure [Le ft Arm] 115/77 Blood Pressure [Ri ght Upper Arm] Pulse Oximetry 99 Oxygen Delivery [facility] Room Air Labs Labs: Laboratory Results - last 24 hr 03/14/22 03/14/22 03/14/22 16:03 16:03 16:03 WBC 6.42 RBC 4.50 Hgb 12.6 Hct 38.2 MCV 85 MCH 28 MCHC 33 RDW Coeff of Chelsie 12.0 Plt Count 236 Neut % (Auto) 65.9 Lymph % (Auto) 23.7 [place] % (Auto) 7.9 Eos % (Auto) 1.7 Baso % (Auto) 0.6 Neut # (Auto) 4.23 Lymph # (Auto) 1.52 [place] # (Auto) 0.50 Eos # (Auto) 0.11 Baso # (Auto) 0.04 Abs Immat Gran (auto) 0.01 Sodium 140 Potassium 3.3 L Chloride 103 Carbon Dioxide 27 BUN 9 Creatinine 0.7 Estimated Creat Clear 91.33 Estimated GFR 111 Glucose 98 Calcium 7.7 L Ionized Calcium Aishwarya Magnesium 1.4 L SARS-CoV-2 (PCR) Negative SARS-CoV-2 03/14/22 03/14/22 03/14/22 16:03 21:51 21:51 WBC RBC Hgb Hct MCV MCH MCHC RDW Coeff of Chelsie Plt Count Neut % (Auto) Lymph % (Auto) [place] % (Auto) Eos % (Auto) Baso % (Auto) Neut # (Auto) Lymph # (Auto) [place] # (Auto) Eos # (Auto) Baso # (Auto) Abs Immat Gran (auto) Sodium 137 Potassium 4.1 Chloride 99 Carbon Dioxide 29 BUN 9 Creatinine 0.6 Estimated Creat Clear 106.55 Estimated GFR 116 Glucose 97 Calcium 8.5 Ionized Calcium Aishwarya 0.96 L 1.06 L Magnesium SARS-CoV-2 (PCR) 03/15/22 03/15/22 06:22 06:22 WBC RBC Hgb Hct MCV MCH MCHC RDW Coeff of Chelsie Plt Count Neut % (Auto) Lymph % (Auto) [place] % (Auto) Eos % (Auto) Baso % (Auto) Neut # (Auto) Lymph # (Auto) [place] # (Auto) Eos # (Auto) Baso # (Auto) Abs Immat Gran (auto) Sodium 136 Potassium 4.2 Chloride 99 Carbon Dioxide 27 BUN 10 Creatinine 0.7 Estimated Creat Clear 91.33 Estimated GFR 111 Glucose 113 Calcium 7.4 L Ionized Calcium Aishwarya 0.91 L Magnesium 1.8 SARS-CoV-2 (PCR)
[2022-03-15 10:37] LABS: Vitamin D 25 Hydroxy* 40 ng/mL (30-80)
--- NOTE | 2022-03-15 14:25 | PC.NURSE ---
Shift Note : Pt verbalized increased numbness/tingling around mouth and nose from yesterday. Also radiating down arms/fingers. Stated sensation had disappeared completely after Calcium infusions yesterday, but have now returned. Calcium 7.4. Vitamin D levels drawn and supplements given PO per MD. Independent. Tolerating regular diet without difficulty. Calcium gluconate infusing at 50ml/hour.
[2022-03-15 16:15] LABS: Chloride* 101 mmol/L (96-114)
[2022-03-15 16:16] LABS: Potassium* 5.8 mmol/L (3.6-5.1); Sodium* 135 mmol/L (135-149)
[2022-03-15 16:18] LABS: Carbon Dioxide* 19 mmol/L (20-32); Creatinine* 0.7 mg/dL (0.5-1.5); Est. Creatinine Clearance* 91.33; Estimated Glomerular Filt Rate 111 ml/min
[2022-03-15 16:19] LABS: Blood Urea Nitrogen* 15 mg/dL (5-24); Calcium* 9.6 mg/dL (8.4-10.6); Glucose* 93 mg/dL (60-115)
[2022-03-15 16:20] LABS: Magnesium* 1.6 mg/dL (1.5-2.6)
[2022-03-15 21:18] LABS: Ionized Calcium* 1.13 mmol/L (1.11-1.30)
[2022-03-15 21:32] LABS: Chloride* 99 mmol/L (96-114)
[2022-03-15 21:33] LABS: Potassium* 4.1 mmol/L (3.6-5.1); Sodium* 134 mmol/L (135-149)
[2022-03-15 21:35] LABS: Creatinine* 0.7 mg/dL (0.5-1.5); Est. Creatinine Clearance* 91.33; Estimated Glomerular Filt Rate 111 ml/min
[2022-03-15 21:36] LABS: Blood Urea Nitrogen* 21 mg/dL (5-24); Calcium* 9.2 mg/dL (8.4-10.6); Carbon Dioxide* 26 mmol/L (20-32); Glucose* 111 mg/dL (60-115)
--- NOTE | 2022-03-15 22:38 | PC.NURSE ---
Shift [id number]- Patient denies tingling, numbness, or pain. Appetite intact. She is saline locked after IV calcium is complete.
[2022-03-16 03:00] VITALS: BP 105/73; PULSE 79; RESP 16; TEMP 36.2; O2SAT 98
--- NOTE | 2022-03-16 05:36 | PC.NURSE ---
[id number] Pt slept well during night, independent in room, denies any abnormal symptoms.
[2022-03-16] MEDS: LEVOTHYROXINE 100 MCG TABLET PO (05:46)
[2022-03-16 07:00] VITALS: BP 109/60; PULSE 76; PULSE 84; RESP 15; TEMP 36.4; O2SAT 98
[2022-03-16 07:21] LABS: HCO3 VBG 26 mmol/L (21-28); PCO2 VBG 43 mmHG (40-50); PO2 VBG 63.5 mmHG (25-47); pH VBG 7.393 (7.32-7.43)
[2022-03-16 07:25] LABS: Ionized Calcium* 1.11 mmol/L (1.11-1.30)
[2022-03-16] MEDS: CALCIUM CARBONATE 500 MG TABLET 2000 MG PO (08:15)
[2022-03-16 08:29] LABS: Chloride* 102 mmol/L (96-114)
[2022-03-16 08:30] LABS: Potassium* 4.2 mmol/L (3.6-5.1); Sodium* 134 mmol/L (135-149)
[2022-03-16 08:32] LABS: Creatinine* 0.6 mg/dL (0.5-1.5); Est. Creatinine Clearance* 106.55; Estimated Glomerular Filt Rate 116 ml/min
[2022-03-16 08:33] LABS: Blood Urea Nitrogen* 16 mg/dL (5-24); Calcium* 8.8 mg/dL (8.4-10.6); Carbon Dioxide* 23 mmol/L (20-32); Glucose* 127 mg/dL (60-115); Magnesium* 1.5 mg/dL (1.5-2.6)
[2022-03-16] MEDS: SERTRALINE 50 MG TABLET PO (10:00)
--- NOTE | 2022-03-16 12:23 | PC.NURSE ---
shift [id number] Pt this shift cooperative and pleasant. No c/o numbness or tingling. Tolerating diet. Seen standing and moving around the room. Per pt, pt does not like to sit still for too long and is ready to go home. Vitals stable. IV dc'd for discharge to home. Instructions for diet, medications, signs and symptoms of hypocalcemia, and follow-up provided. Pt ambulated off the unit with spouse.
--- NOTE | 2022-03-31 12:54 | PM.DS1 ---
DS: Providers Provider Date Seen: 03/31/22 Date of admission: 03/14/22 18:14 Primary care physician: Laura Corona DO Admitting Clinician: Marylin Vanegas MD Attending Physician on discharge: Yarelis Perry MD Date of Discharge: 03/17/22 DS: Diagnosis Discharge Diagnosis (1) Iatrogenic hypocalcemia: Status: Acute (2) Hypothyroidism (acquired): Status: Acute Problem details: tsh at goal DS: Summary Hospital Course Hospital Course: HOSPITALIST DISCHARGE SUMMARY ATTENDING PHYSICIAN: Antonia Perry MD FINAL DIAGNOSIS: Hypocalcemia; iatrogenic from previous thyroid resection HOSPITAL FOLLOWUP ISSUES: general surgery - 2 days after discharge we recommended calcium, BMP, TSH recheck REFERRALS WHILE ADMITTED: None REFERRALS AFTER DISCHARGE: return to her surgeon BRIEF HOSPITAL COURSE: Madhuri was admitted with symptomatic hypocalcemia. 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 As a known complication her parathyroid glands were likely resected. She was prophylactically started on oral calcium replacement. However her calcium dropped precipitously and she was symptomatic and presented to our emergency room with tingling in her cheeks, spasms in her hands. Initially she was treated with 1 g IV pushes calcium gluconate. We also replaced her calcium orally with calcium carbonate, 2 g b.i.d. with meals. She also received potassium bicarb orally and magnesium IV. When the morning after admission her overall serum ionized calcium had dropped even lower she was started on a calcium infusion. We mixed 11 g of calcium gluconate and 1 L and ran this is a 50 mL an hour. Her symptoms finally resolved, her calcium stable by day 2 and she was discharged. Follow-up with her surgeon was arranged. Pathology from her surgery at an OSH was not available. VITAL SIGN, MEDICATION, LAB/MICRO, IMAGING SUMMARY (full details available in account tabs or by records request) DISCHARGE MEDICATIONS: See Reconciled list REVIEW OF SYSTEMS No new chest pain or dyspnea Pain controlled No voiding difficulties Tolerating diet challenge PHYSICAL EXAM: CONSTITUTIONAL: Alert, insightful VITAL SIGNS: see record. HEENT: Normocephalic, atraumatic. PERRL, EOMI, conjunctivae pink, no scleral icterus. Ears and nose externally normal. Pharynx normal. NECK: No JVD. No carotid bruit, no thyromegaly, no adenopathy. CHEST: Clear to auscultation bilaterally. HEART: S1 and S2 normal. ABDOMEN: Soft, nontender. Normal bowel sounds. MUSCULOSKELETAL: No gross joint deformity or swelling. NEURO: Cranial nerves intact. Grossly intact. No asymmetric findings. SKIN: No rashes, petechiae, concerning changes PSYCHIATRIC: Mood euthymic. DISPOSITION: Home with spouse Time spent on discharge 37 minutes. Status at Discharge Functional status at discharge: independent ambulation Overall status at discharge: patient is back to baseline Time Spent with Patient Time attestation: Total time spent providing and/or coordinating discharge services: Time spent: Greater than 30 minutes Discharge Plan Discharge Disposition: Home, Self-Care Date of Admission: 03/14/22 18:14 Attending Provider on Discharge: Antonia Perry Primary Care Provider: Laura Corona Condition: Stable Anticipated Discharge Date/Time: 03/16/22 10:48 Discharge Medications: New calcium carbonate [Oyster Shell Calcium 500] 500 mg calcium (1,250 mg) Tablet 2,000 mg PO BIDWM Qty: 360 0RF cholecalciferol (vitamin D3) 25 mcg (1,000 unit) Tablet 50 mcg PO TID Qty: 120 0RF Continued levothyroxine 100 mcg tablet 100 mcg PO DAILY sertraline 50 mg tablet 50 mg PO DAILY spironolactone 50 mg tablet 50 mg PO DAILY Discontinued calcium 500 mg tablet 1,000 mg PO TID cholecalciferol (vitamin D3) [D3-2000] 50 mcg (2,000 unit) capsule 2,000 unit PO DAILY Discharge Orders: Discharge Order (Routine); Ordered 03/16/22 Ordered By: Antonia Perry Patient Education: Calcium Supplement (By mouth) (Antacid, Darwin-Citrate, Calcarb 600,..., Cholecalciferol (By mouth) (D-3, Nature's Blend Super Strength..., Hypocalcemia (DC) Activity Level: Activity as Tolerated Discharge Diet: Regular Follow Up Appointments: Laura Corona DO [Primary Care Provider] - 03/20/22 7:45 am (Follow up with PCP To get labs checked.) Forms: [employer] Info Instructions Discharge Comments: SEE YOUR SURGEON AND/OR OFFICE THIS WEEK TO GET LABS CHECKED
== END 2022-03-16 11:50 | disposition home or self-care (01) | DRG 813 ==
LOC: ED 18:01 → MEDSURG 18:14
PROVIDERS: Family Medicine; Admitting Provider Family Medicine; Emergency Provider Family Medicine; PCP Family Medicine; Visit Provider Family Medicine
DX: E89.89 Other postprocedural endocrine and metabolic complications and disorders (principal); E83.51 Hypocalcemia; Y83.6 Removal of other organ (partial) (total) as the cause of abnormal reaction of the patient, or of later complication, without mention of misadventure at the time of the procedure; E89.0 Postprocedural hypothyroidism; E83.42 Hypomagnesemia; E87.6 Hypokalemia; R25.2 Cramp and spasm; F41.9 Anxiety disorder, unspecified; R20.2 Paresthesia of skin
CPT/HCPCS: 36415; 80048; 82306; 82330; 82803; 83735; 85025; 87635; 93005; 99284; 99285; A9270; J0610; J3475; J7120